=== PATIENT | female | born 1965 | race African-American/Black ===

== ENCOUNTER → 2016-06-27 | Outpatient (CLI) | payer BC ==
[2015-11-24 04:30] VITALS: BP 169/85
[~2016-06-27] MED LIST: LISI1TAB3 PO; LOSA1TAB16 PO
--- NOTE | 2016-06-27 16:20 | KCIC ---
Diagnostic digital mammograms left breast: Reason for examination: Asymmetry in the left breast. Followup exam. Comparison is made to previous study dated 12/19/2015. FINDINGS Breast density category C. The skin and nipple show no abnormalities. No abnormal lymph nodes are seen in the axilla. The breast parenchyma shows heterogeneous density. There continues to be some parenchymal asymmetry in the upper outer quadrant of the left breast which is unchanged. There continues to be a small circumscribed nodule at the 4 o'clock C position of the left breast consistent with an intramammary lymph node. There are no new dominant masses, suspicious calcifications or architectural distortions. IMPRESSION Continued presence of asymmetric parenchyma in the upper outer quadrant and a small nodule at the 4 o'clock C position. Ultrasound will follow. This study was interpreted with the benefit of Computerized Aided Detection (CAD). Mammography is not 100% sensitive in detecting breast cancer. Therefore, a self breast exam and a clinical breast exam are very important. A negative mammogram does not negate a clinically suspicious finding and should not result in a delay in biopsying a clinically suspicious abnormality. BI-RADS category 0: Incomplete. Ultrasound to follow. Left breast ultrasound: Comparison is made to previous studies dated 12/26/2015. Ultrasound examination was performed with attention to the lateral breast and axilla. In the 4 o'clock position 14 centimeters from the nipple, there continues to be a small nodule with a echogenic center consistent with an intramammary lymph node. In the 12 o'clock position 2.5 centimeters from the nipple, there is a hypoechoic nodule with some central echogenicity. This may represent some fibrocystic changes with post biopsy clip. There is some ductal ectasia in the retroareolar 2 o'clock position. No other focal suspicious lesions are seen. No abnormal lymph nodes are seen in the axilla. Impression: Continued presence of a small nodule consistent with an intramammary lymph node at the 4 o'clock C position of the left breast. Nodular asymmetry with some echogenicity centrally in the 12 o'clock position 2.5 centimeters from the nipple which may reflect previous biopsy site. Recommend 6 month followup ultrasound. BI-RADS category 3: Probably benign. This patient's information has been entered into a reminder system for the patient to be notified with the results of this examination and a target date for her next mammograms. Electronically signed by: Sena Osei MD (Jun 27, 2016 16:18:50)
== END | disposition home or self-care (01) ==
LOC: KCIC US 12:46
PROVIDERS: ATTEND Family Medicine
DX: R92.8 Other abnormal and inconclusive findings on diagnostic imaging of breast (principal)
CPT/HCPCS: 76641; G0206; 77065

== ENCOUNTER 2016-08-15 00:08 | Emergency (ER) | payer BC ==
[2016-08-15] MEDS ORDERED: PRED20TA PO (00:26)
[2016-08-15] MEDS ORDERED: FAMO-63 PO (00:26)
--- NOTE | 2016-08-15 00:26 | PHYS DOC ---
Past Medical History Past Medical History: Hypertension Past Surgical History: Hysterectomy Alcohol Use: None Drug Use: None Adult General Chief Complaint Chief Complaint: ITCHING HPI HPI Patient is a 50 year old female presents emergency department stating that she has been having irritation to the skin around the knees back arms hands. She states she has a rash. She denies any new soaps, detergents or foods. She denies any new clothing that's not been washed. Patient states she took a Benadryl around 4 PM this evening she states that that did not help much. Patient appears to have a hive on the back of her right shoulder. Patient does have redness on the shoulder knees hands. She denies any shortness of air difficulty breathing. Review of Systems Review of Systems Constitutional: Denies fever or chills [] Eyes: Denies change in visual acuity, redness, or eye pain [] HENT: Denies nasal congestion or sore throat [] Respiratory: Denies cough or shortness of breath [] Cardiovascular: No additional information not addressed in HPI [] GI: Denies abdominal pain, nausea, vomiting, bloody stools or diarrhea [] : Denies dysuria or hematuria [] Musculoskeletal: Denies back pain or joint pain [] Integument: rash denies skin lesions [] Neurologic: Denies headache, focal weakness or sensory changes [] Allergies Allergies Allergies Coded Allergies Type Severity Reaction Last Updated Verified No Known Drug Allergies 05/15/13 No Physical Exam Physical Exam Constitutional: Well developed, well nourished, no acute distress, non-toxic appearance. [] HENT: Normocephalic, atraumatic, bilateral external ears normal, oropharynx moist, no oral exudates, nose normal. [] Eyes: PERRLA, EOMI, conjunctiva normal, no discharge. [] Neck: Normal range of motion, no tenderness, supple, no stridor. [] Cardiovascular:Heart rate regular rhythm, no murmur [] Lungs & Thorax: Bilateral breath sounds clear to auscultation [] Skin: Warm, dry, no erythema, patient with a red raised rash noted on her back that appears to be hives. She also has red raised areas on her left knee bilateral palms appear to be very red. Back: No tenderness Extremities: No tenderness, no cyanosis, no clubbing, ROM intact, no edema. [] Neurologic: Alert and oriented X 3, normal motor function, normal sensory function, no focal deficits noted. [] Psychologic: Affect normal, judgement normal, mood normal. [] EKG EKG [] Radiology/Procedures Radiology/Procedures [] Course & Med Decision Making Course & Med Decision Making Pertinent Labs and Imaging studies reviewed. (See chart for details) Patient is unable to get Benadryl here in the emergency department as she has driven herself. She will be provided with prednisone and Pepcid. Patient was provided with discharge instructions to keep the areas clean dry and cool. She may use Aveeno baths to help soothe the skin. Also recommended Benadryl 25 mg every 4-6 hours. She was instructed this medication will cause drowsiness do not take any be alert and oriented. She'll be provided with a prescription for prednisone and Pepcid. Patient will be discharged home in stable condition. Signs symptoms to return back to emergency department been provided. [] Dragon Disclaimer Dragon Disclaimer This electronic medical record was generated, in whole or in part, using a voice recognition dictation system. Departure Departure Impression: Primary Impression: Allergic reaction Disposition: HOME, SELF-CARE Condition: STABLE Referrals: MARLENE SAUNDERS MD (PCP) Patient Instructions: Contact Dermatitis, [id number] Additional Instructions: Home to rest. Benadryl 25 mg every 4-6 hours. This medication will cause drowsiness do not take any be alert and oriented. Medication as prescribed. Aveeno baths may also help soothe the skin. Keep the areas clean dry and cool this will help prevent increase itching and irritation. Follow-up to primary care physician in the next 3-5 days. Return back to emergency prior signs symptoms of become worse. Scripts Famotidine (Pepcid)20 Mg [id number] Mg PO HS #10 TAB Prov:PEDRO KENYON STATOR WINDER 08/15/16 Prednisone 20 Mg [id number] Mg PO DAILY #14 TAB Prov:PEDRO KENYON STATOR WINDER 08/15/16 PEDRO KENYON STATOR WINDER Aug 15, 2016 00:26
[2016-08-15] MEDS ORDERED: FAMOTIDINE 20 MG TABLET. PO ONE (00:30)
[2016-08-15] MEDS ORDERED: PREDNISONE 20 MG TABLET PO ONE (00:30)
[2016-08-15 00:37] VITALS: BP 176/100
== END 2016-08-15 00:40 | disposition home or self-care (01) ==
LOC: ER 00:08
DX: T78.40XA Allergy, unspecified, initial encounter (principal); L50.9 Urticaria, unspecified; I10 Essential (primary) hypertension; X58.XXXA Exposure to other specified factors, initial encounter
CPT/HCPCS: 99283; J7512

== ENCOUNTER → 2017-02-04 | Outpatient (CLI) | payer BC ==
[~2017-02-04] MED LIST changes: +FAMO-63 PO; +PRED20TA PO
--- NOTE | 2017-02-05 12:51 | KCIC ---
DATE: 02/04/17 EXAM: Bilateral diagnostic 3-D mammogram and left breast ultrasound HISTORY: Follow-up abnormal asymmetric density in the left breast COMPARISON: Bilateral screening mammograms from 12/19/15 and 06/27/16 as well as left breast ultrasound from 12/26/15 and 06/27/16 This study was interpreted with the benefit of Computerized Aided Detection (CAD ). TECHNIQUE: Routine 2-D and 3-D screening mammograms of both breasts were obtained. FINDINGS: Bilateral mammogram: Breast Density: C Dense breast parenchyma is redemonstrated in the left upper outer breast which does not appear significantly changed. There is also a well-circumscribed nodule in the left outer breast. No suspicious clustered microcalcifications or architectural distortion is seen. The skin and nipples are intact. No definite mammographic abnormality seen in the left breast. Ultrasound of the left breast may be obtained to ensure interval stability. Left breast ultrasound discussion: There is a intramammary lymph node measuring 1.4 cm at 4:00 position, 14 cm from the nipple. Asymmetric density with fibrocystic changes at 12:00 position, 2.5 cm from the nipple remains unchanged. IMPRESSION: Asymmetric density and fibrocystic changes at 12:00 position, 2.5 cm from the nipple and a benign-appearing intramammary lymph node at 2:00 position remain stable. Patient may return for annual screening mammography in one year. BI-RADS CATEGORY: 2 BENIGN FINDING(S) RECOMMENDED FOLLOW-UP: One year bilateral mammograms PQRS compliance statement: Patient information was entered into a reminder system with a target due date for the next mammogram. Mammography is a sensitive method for finding small breast cancers, but it does not detect them all and is not a substitute for careful clinical examination. A negative mammogram does not negate a clinically suspicious finding and should not result in delay in biopsying a clinically suspicious abnormality. "Our facility is accredited by the [employer] Mammography Program." MTDD
== END | disposition home or self-care (01) ==
LOC: KCIC MAMMO 08:40
PROVIDERS: ATTEND Surgery
DX: R92.2 Inconclusive mammogram (principal)
CPT/HCPCS: 76641; G0204; G0279; 77062; 77066

== ENCOUNTER 2017-11-14 01:48 | Emergency (ER) | payer BC ==
[2017-11-14] MEDS: GABAPENTIN 300 MG CAPSULE. PO (02:24)
[2017-11-14 02:29] LABS: ADD MAN DIFF? NO
[2017-11-14 02:32] LABS: BASO % 1 % (0-3); EOS # 0.1 x10^3/uL (0.0-0.7); EOS % 1 % (0-3); HEMATOCRIT 37.6 % (36.0-47.0); HEMOGLOBIN 12.8 g/dL (12.0-15.5); LYMPH # 2.3 x10^3/uL (1.0-4.8); LYMPH % 34 % (24-48); MEAN CORPUSCULAR HEMOGLOBIN 29 pg (25-35); MEAN CORPUSCULAR HGB CONC 34 g/dL (31-37); MEAN CORPUSCULAR VOLUME 85 fL (79-100); MONO # 0.4 x10^3/uL (0.0-1.1); MONO % 5 % (0-9); NEUT % 59 % (31-73); PLATELET COUNT 212 x10^3/uL (140-400); RED BLOOD COUNT 4.45 x10^6/uL (3.50-5.40); RED CELL DISTRIBUTION WIDTH 14.7 % (11.5-14.5); WHITE BLOOD COUNT 6.7 x10^3/uL (4.0-11.0)
[2017-11-14 02:36] LABS: BILIRUBIN,URINE NEGATIVE (NEG); CLARITY,URINE CLEAR; COLOR,URINE YELLOW; GLUCOSE,URINE NEGATIVE (NEG); NITRITE,URINE NEGATIVE (NEG); PH,URINE 6.5; PROTEIN,URINE NEGATIVE (NEG-TRACE); UROBILINOGEN,URINE 0.2 mg/dL (0.2 mg/dL)
[2017-11-14 02:44] LABS: ANION GAP 11 (6-14); BLOOD UREA NITROGEN 12 mg/dL (7-20); CALCIUM 9.1 mg/dL (8.5-10.1); CARBON DIOXIDE 25 mmol/L (21-32); CHLORIDE 105 mmol/L (98-107); CREATININE 0.8 mg/dL (0.6-1.0); GFR 90.8; GLUCOSE 129 mg/dL (70-99); POTASSIUM 3.4 mmol/L (3.5-5.1); SODIUM 141 mmol/L (136-145)
[2017-11-14 02:46] LABS: BACTERIA,URINE MODERATE /HPF (0-FEW); RBC,URINE 0 /HPF (0-2)
[2017-11-14 02:47] LABS: SQUAMOUS EPITHELIAL CELL,UR MOD /LPF; TRICHOMONAS,URINE PRESENT; YEAST,URINE PRESENT /HPF
== END 2017-11-14 03:16 | disposition home or self-care (01) ==
LOC: ER 01:48
DX: E11.43 Type 2 diabetes mellitus with diabetic autonomic (poly)neuropathy (principal); I10 Essential (primary) hypertension; N39.0 Urinary tract infection, site not specified; Z91.14 Patient's other noncompliance with medication regimen; Z90.710 Acquired absence of both cervix and uterus
CPT/HCPCS: 36415; 80048; 81001; 85025; 87086; 99284

== ENCOUNTER → 2018-08-25 | Outpatient (CLI) | payer BC ==
[2017-11-14 03:00] VITALS: BP 174/86
[~2018-08-25] MED LIST changes: +CHLO25TA10 PO; +CIPR500T94 PO; +GABA300C18 PO; -LOSA1TAB16 PO; +LOSA1TAB19 PO; +METF500T16 PO
--- NOTE | 2018-08-25 16:34 | KCIC ---
Bilateral digital screening mammograms with 3-D tomosynthesis: Reason for examination: Routine screening. Comparison is made to previous studies dated 02/04/2017 and 12/19/2015. Bilateral mammograms in CC and oblique projections were obtained with 2-D imaging and 3-D tomosynthesis imaging on a Siemens Inspiration unit and reviewed on the workstation. Interpretation was made with the benefit of CAD. The skin and nipples show no abnormalities. No abnormal axillary lymph nodes are seen. The breast parenchyma is heterogeneously dense. (Breast density: Category C.) There are no continues to be a small nodule consistent with an intramammary lymph node at the 3:30 C position of the left breast which is stable. There are no new dominant masses, suspicious calcifications or architectural distortion. Impression: No evidence of malignancy. Recommend routine screening. Your patient's mammogram demonstrates that she has dense breast tissue (breast density category C or D), which could hide abnormalities, and if she has other risk factors for breast cancer that have been identified, she might benefit from supplemental screening tests that may be suggested by you as her ordering physician. Dense breast tissue, in and of itself, is a relatively common condition. Therefore, this information is not provided to cause undue concern, but rather to raise your awareness and to promote discussion with your patient regarding the presence of other risk factors, in addition to dense breast tissue. Your patient's mammography results will be sent to her. BI-RAD Category 2: Benign. "Our facility is accredited by the [employer] Mammography Program." This patient's information has been entered into a reminder system for the patient to be notified with the results of her examination and a target date for the next mammogram. Electronically signed by: Melodie Osei MD (08/25/2018 4:31 PM) [id number]
== END | disposition home or self-care (01) ==
LOC: KCIC MAMMO 10:52
PROVIDERS: ATTEND Family Medicine
DX: Z12.31 Encounter for screening mammogram for malignant neoplasm of breast (principal)
CPT/HCPCS: 77063; 77067

== ENCOUNTER → 2018-09-03 | Outpatient (CLI) | payer BC ==
[2017-11-14 03:00] VITALS: BP 174/86
--- NOTE | 2018-09-03 08:45 | KCIC ---
EXAM: Brain MRI without contrast. HISTORY: Memory loss. TECHNIQUE: Multiplanar, multisequence magnetic resonance imaging of the brain was performed without contrast. COMPARISON: Head CT dated 06/30/2014. FINDINGS: There is no restricted diffusion to suggest acute or subacute infarction. There is slight increased signal in the right aspect of the celina on diffusion-weighted images due to T2 shine through artifact. There is no mass effect or midline shift. There is no hydrocephalus. There are multiple scattered focal areas of T2/FLAIR hyperintensity within the cerebral white matter and celina. The orbits are unremarkable. There is minimal paranasal sinus mucosal thickening. There is an incidental left kasey bullosa. The mastoid air cells are unremarkable. There are normal flow voids within the cerebral vessels. No calvarial lesion is seen. IMPRESSION: 1. No acute intracranial finding. 2. Multiple scattered focal areas of signal change within the cerebral white matter and celina. This is most commonly due to chronic small vessel disease in patients of this age. The possibility of superimposed focal areas of chronic demyelination is not excluded given the lesion distribution and configuration. Electronically signed by: Petra Steele MD (09/03/2018 8:42 AM) [place] [id number]
== END | disposition home or self-care (01) ==
LOC: KCIC MRI 07:31
PROVIDERS: ATTEND Family Medicine
DX: R41.3 Other amnesia (principal); R90.82 White matter disease, unspecified
CPT/HCPCS: 70551

== ENCOUNTER → 2019-11-17 | Outpatient (CLI) | payer BC ==
[2017-11-14 03:00] VITALS: BP 174/86
[~2019-11-17] MED LIST changes: +LISI1TAB23 PO; -LISI1TAB3 PO
--- NOTE | 2019-11-17 10:16 | KCIC ---
Bilateral digital screening mammograms with 3-D tomosynthesis: Reason for examination: Routine screening. Comparison is made to previous studies dated 08/25/2018 and 02/04/2017. Bilateral mammograms in CC and oblique projections were obtained with 2-D imaging and 3-D tomosynthesis imaging on a Siemens Inspiration unit and reviewed on the workstation. Interpretation was made with the benefit of CAD. The skin and nipples show no abnormalities. No abnormal axillary lymph nodes are seen. The breast parenchyma is heterogeneously dense. (Breast density: Category C.) There continues to be a small circumscribed nodule posteriorly at the 4:00 C position of the left breast which is stable. There are no new dominant masses, suspicious calcifications or architectural distortion. Impression: No evidence of malignancy. Recommend routine screening. Your patient's mammogram demonstrates that she has dense breast tissue (breast density category C or D), which could hide abnormalities, and if she has other risk factors for breast cancer that have been identified, she might benefit from supplemental screening tests that may be suggested by you as her ordering physician. Dense breast tissue, in and of itself, is a relatively common condition. Therefore, this information is not provided to cause undue concern, but rather to raise your awareness and to promote discussion with your patient regarding the presence of other risk factors, in addition to dense breast tissue. Your patient's mammography results will be sent to her. BI-RAD Category 2: Benign. "Our facility is accredited by the [employer] Mammography Program." This patient's information has been entered into a reminder system for the patient to be notified with the results of her examination and a target date for the next mammogram. Electronically signed by: Melodie Osei MD (11/17/2019 10:13 AM) [facility]
== END ==
LOC: KCIC MAMMO 08:19
PROVIDERS: ATTEND Family Medicine
DX: Z12.31 Encounter for screening mammogram for malignant neoplasm of breast (principal)
CPT/HCPCS: 77063; 77067

== ENCOUNTER → 2019-12-22 | Outpatient (CLI) | payer BC ==
[2017-11-14 03:00] VITALS: BP 174/86
--- NOTE | 2019-12-22 13:20 | KCIC ---
STUDY: MRI of the left knee without contrast INDICATION: Left knee pain. COMPARISON: None. TECHNIQUE: Multiplanar MR imaging of the left knee performed without the use of intravenous or intra-articular contrast. FINDINGS: Menisci: The lateral meniscus is intact. Meniscal degeneration/degenerative tearing at the mid to posterior body segment, images 10 and 11 series 8. The root insertions are intact. Cruciate ligaments: Intact. Collateral ligaments: The lateral collateral ligamentous complex is intact. Reactive edema along the medial collateral ligament complex without a ligament tear. Tendons: Mild distal quadriceps tendinosis. Otherwise unremarkable tendons at the knee. Cartilage: Patellofemoral: No full-thickness chondral defect. There is likely some scattered superficial chondral fibrillation. Lateral compartment: Localized mostly partial-thickness chondrosis at the mid to posterior weightbearing lateral femoral condyle and lateral tibial plateau. Trace lateral femoral condyle subchondral cystic change, image 12 series 8. Medial compartment: Extensive high-grade and full-thickness mostly weightbearing chondrosis but with involvement of the proximal nonweightbearing aspect as well. Associated subchondral edema and cystic change involving the medial tibial plateau more so than the medial femoral condyle. Bones: Degenerative findings as above. No aggressive marrow signal abnormality. Scattered osteophyte formation the to include an osseous excrescence off the posteromedial aspect of the medial tibial plateau. Miscellaneous: Small amount of knee joint fluid. Heterogeneous T2 signal focus posterior to the popliteal vein, image 6 series 4, favored to represent a reactive lymph node. IMPRESSION: 1. Medial meniscal degeneration/degenerative tearing mainly at the mid to posterior body segment. Correspondingly there is severe weightbearing more so than proximal nonweightbearing medial compartment chondrosis with subchondral edema and cystic change. These findings involve the medial tibial plateau more so than the medial femoral condyle. 2. Intact cruciate and collateral ligaments. The lateral meniscus is intact. 3. Mild distal quadriceps tendinosis. 4. Localized partial thickness chondrosis at the posterior weightbearing lateral compartment. Electronically signed by: KEAGAN DOZIER MD (12/22/2019 1:17 PM) [id number]
== END | disposition home or self-care (01) ==
LOC: KCIC MRI 12:21
PROVIDERS: ATTEND Orthopaedic Surgery
DX: M25.762 Osteophyte, left knee (principal); M25.462 Effusion, left knee; M62.89 Other specified disorders of muscle; M77.8 Other enthesopathies, not elsewhere classified
CPT/HCPCS: 73721

== ENCOUNTER → 2020-02-10 | Outpatient (CLI) | payer BC ==
[2017-11-14 03:00] VITALS: BP 174/86
[~2020-02-10] MED LIST changes: +ATOR10TA60 PO; +BENA20TA4 PO; +CIDE300T PO; +ERGO500027 PO; +HYDR-3165 PO; +HYDR25TA10 PO; +MULT-496 PO
== END | disposition home or self-care (01) ==
LOC: LAB 13:54
PROVIDERS: ATTEND Orthopaedic Surgery
DX: Z20.828 Contact with and (suspected) exposure to other viral communicable diseases (principal)
CPT/HCPCS: U0003-CS

== ENCOUNTER → 2020-02-14 | Day surgery (SDC) | payer BC ==
[~2020-02-14] VITALS: Ht 157.5 cm; Wt 83.9 kg
[~2020-02-14] MED LIST changes: +BUPIVACAINE MPF 0.25% 30 ML VIAL. ONE; +HYDROcodone/APAP 7.5/325MG 1 TAB TABLET PO ONE; +HYDROmorphone 2 MG/ML VIAL IV PRN; +IV RINGERS,LACTATED 1000ML 1,000 ML IV SCH; +LIDOCAINE 1% Multi-Dose 20 ML VIAL. ONE; +LIDOCAINE 1% PF 2 ML VIAL. ID PRN; +MIDAZOLAM HCL/PF 2 MG/2 ML VIAL. ONE; +MORPHINE SULFATE 2 MG/ML VIAL. IV PRN; +ONDANSETRON PF 4 MG/2 ML VIAL. IV PRN; +PROCHLORPERAZINE 10 MG/2 ML VIAL. IV PRN; +PROPOFOL 10 MG/ML (20ML) VIAL. IV ONE; +fentaNYL PF VIAL 100 MCG/2 ML VIAL IV PRN; +fentaNYL PF VIAL 100 MCG/2 ML VIAL ONE; +hydrALAZINE 20 MG/ML VIAL. ONE
--- NOTE | 2020-02-14 08:18 | DISCH ---
DISCHARGE INSTRUCTIONS Condition on Discharge Condition on Discharge: Stable Activity After Discharge Activity Instructions for Disc: Other, see below (avoid hard grasp, fine motor use allowed like eating writing, typing etc) Lifting Instructions after Dis: No heavy lifting, Do not lift >10 pounds Weight Bearing Status after Di: As tolerated Diet after Discharge Diet after Discharge: Regular Wound Incision Care Wound/Incision Care: Ice to area for comfort, Do not change dressing Contacting the DRMarvin after DC Call your doctor for: Concerns you may have Follow-Up Follow up with: Dr. Petit 10 days CASIMIRO PETIT MD Feb 14, 2020 08:18
[2020-02-14 10:25] VITALS: BP 153/87
--- NOTE | 2020-02-14 15:47 | PDOC4 ---
Operative Note Operative Note Date of surgery: 02/14/2020 Preoperative diagnosis: Left carpal tunnel syndrome and trigger thumb Postoperative diagnosis: Same Operative procedure: Left carpal tunnel and trigger thumb releases Surgeon: Marisabel Instructor Physical Education: David Luis nurse practitioner Anesthesia: [place] I block Estimated blood loss: 2 cc Complications: None Operative indications:Sharon has had longstanding numbness in the median nerve distribution verified by EMG testing and unresponsive to nonoperative management. She says that she has been having recent significant pain and locking with flexion of her left thumb as well and we have reviewed risks benefits postoperative course of both the carpal tunnel release and trigger fin lisa release including the possibility of nerve or blood vessel damage infection continued pain medical or other anesthetic complications and the fact that her restrictions would really not change of avoiding hard grasping over the healing timeframe. All her questions were answered and she wishes to proceed with surgical evaluation and treatment Operative text: Patient was identified procedure verified patient placed in the supine position on the operating table. After adequate amounts of [place] I block anesthesia were administered the left upper extremity was prepped and draped in the standard sterile fashion. After timeout was performed patient procedure identified and verified her anesthesia was checked and supplemented with half percent plain Marcaine. A longitudinal incision was then made just distal to the distal palmar crease transverse carpal ligament was identified and divided under direct vision sharply both proximally and distally and verified to be released both visually and palpably. Median nerve was noted to have moderate compression. Attention was then turned to the left thumb where a transverse incision was made at the base of the thumb dissection carried out down to the flexor tendon sheath. Neurovascular bundles were isolated and protected and the A1 paz was divided completely allowing full range of motion and eliminating the triggering. Thorough irrigation carried out normal saline solution. Additional half percent plain Marcaine was injected in both incisions and closure accomplished with 3-0 nylon suture in a simple and vertical mattress fashion. Sterile soft dressings were placed fingers were noted to be warm pink following deflation of the tourniquet and patient was returned to recovery room in stable condition having tolerated procedure well. David Luis nurse practitioner was present for the procedure and assisted in the patient positioning prepping draping retraction closure and dressings CASIMIRO LEES MD Feb 14, 2020 15:47
== END | disposition home or self-care (01) ==
LOC: SURG 10:00
PROVIDERS: ATTEND Orthopaedic Surgery
DX: G56.02 Carpal tunnel syndrome, left upper limb (principal); M65.312 Trigger thumb, left thumb; I10 Essential (primary) hypertension; E11.9 Type 2 diabetes mellitus without complications; Z79.899 Other long term (current) drug therapy
CPT/HCPCS: 26055; 64721; J0360; J0690; J2250; J2405; J2704; J3010; J3490

== ENCOUNTER 2020-05-10 18:20 | Emergency (ER) | payer BC ==
[~2020-05-10] VITALS: Ht 160 cm; Wt 81.0 kg
[~2020-05-10 18:20] MED LIST changes: -BUPIVACAINE MPF 0.25% 30 ML VIAL. ONE; -HYDROcodone/APAP 7.5/325MG 1 TAB TABLET PO ONE; -HYDROmorphone 2 MG/ML VIAL IV PRN; -IV RINGERS,LACTATED 1000ML 1,000 ML IV SCH; -LIDOCAINE 1% Multi-Dose 20 ML VIAL. ONE; -LIDOCAINE 1% PF 2 ML VIAL. ID PRN; -MIDAZOLAM HCL/PF 2 MG/2 ML VIAL. ONE; -MORPHINE SULFATE 2 MG/ML VIAL. IV PRN; -ONDANSETRON PF 4 MG/2 ML VIAL. IV PRN; -PROCHLORPERAZINE 10 MG/2 ML VIAL. IV PRN; -PROPOFOL 10 MG/ML (20ML) VIAL. IV ONE; -fentaNYL PF VIAL 100 MCG/2 ML VIAL IV PRN; -fentaNYL PF VIAL 100 MCG/2 ML VIAL ONE; -hydrALAZINE 20 MG/ML VIAL. ONE
[2020-05-10 19:05] VITALS: BP_SYST 185
--- NOTE | 2020-05-10 19:33 | RAD ---
EXAM: Left knee, 3 views. HISTORY: Pain. COMPARISON: 11/14/2019 FINDINGS: 3 views of the left knee are obtained. There is medial compartment joint space narrowing with subchondral sclerosis and marginal spurring. There is a small joint effusion. There is no acute fracture, dislocation or subluxation. IMPRESSION: 1. Small left knee effusion. 2. Mild medial compartment osteoarthritis of the left knee. Electronically signed by: Petra Steele MD (05/10/2020 7:30 PM) [facility]
[2020-05-10] MEDS ORDERED: MELO15TA23 PO (19:48)
--- NOTE | 2020-05-10 19:48 | ED.ADGEN ---
Past Medical History Past Medical History: Arthritis, Diabetes-Type II, Hypertension Additional Past Medical Histor: carpal tunnel Past Surgical History: , Hysterectomy Additional Past Surgical Histo: carpal tunnel surgery February 2020 Smoking Status: Never Smoker Alcohol Use: None Drug Use: None General Adult EDM: Chief Complaint: KNEE INJURY HPI: HPI: Patient is a 54 year old AA female who presents emergency department with complaints of left knee pain for the last 2 to 3 months. She denies any injury or trauma. States that the pain has significantly increased over the last week. She has tried wearing a elastic knee support and has tried taking naproxen that was previously prescribed by her orthopedic doctor without any benefit. Patient states she has seen Dr. Petit for previous orthopedic services. She denies any fever, swelling, redness, or warmth of the affected joint. She currently rates pain 10 out of 10 on the pain scale, she denies any alleviating factors, pain is worse with ambulation and movement. Review of Systems: Review of Systems: Complete ROS is negative unless otherwise noted in HPI. Allergies: Allergies: Allergies Coded Allergies Type Severity Reaction Last Updated Verified No Known Drug Allergies 02/14/20 No Physical Exam: PE: See Above Constitutional: Well developed, well nourished, no acute distress, non-toxic appearance. [] HENT: Normocephalic, atraumatic, bilateral external ears normal, nose normal. [] Eyes: PERRLA, EOMI, conjunctiva normal, no discharge. [] Neck: Normal range of motion, no stridor. [] Cardiovascular:Heart rate regular rhythm Lungs & Thorax: Respirations even and unlabored, no retractions, no respiratory distress Skin: Warm, dry, no erythema, no rash. [] Extremities: Left knee: diffuse tenderness to palpation, negative anterior and posterior drawer testing, no crepitus, 2+ posterior tibial pulse, no cyanosis, ROM intact, 1+ edema without erythema or warmth. Neurologic: Alert and oriented X 3, no focal deficits noted. [] Psychologic: Affect normal, judgement normal, mood normal. [] Current Patient Data: Vital Signs: Vital Signs Date Time Temp Pulse Resp B/P (MAP) Pulse Ox O2 Delivery O2 Flow Rate FiO2 05/10/20 19:05 97.6 83 185/96 (125) 99 Room Air 97.6 EKG: EKG: [] Heart Score: Risk Factors: Risk Factors: DM, Current or recent (<one month) smoker, HTN, HLP, family history of CAD, obesity. Risk Scores: Score 0 - 3: 2.5% MACE over next 6 weeks - Discharge Home Score 4 - 6: 20.3% MACE over next 6 weeks - Admit for Clinical Observation Score 7 - 10: 72.7% MACE over next 6 weeks - Early Invasive Strategies Radiology/Procedures: Radiology/Procedures: PROCEDURE: KNEE LEFT 3V EXAM: Left knee, 3 views. HISTORY: Pain. COMPARISON: 11/14/2019 FINDINGS: 3 views of the left knee are obtained. There is medial compartment joint space narrowing with subchondral sclerosis and marginal spurring. There is a small joint effusion. There is no acute fracture, dislocation or subluxation. IMPRESSION: 1. Small left knee effusion. 2. Mild medial compartment osteoarthritis of the left knee. [] Course & Med Decision Making: Course & Med Decision Making Pertinent Labs and Imaging studies reviewed. (See chart for details) []I have reviewed the PA/BOTTOM SCRUBBER's note and Plan of Care. I was available for consultation as needed during the patient's visit in the emergency department. I agree with the clinical impression, plans and disposition. Kika Disclaimer: Kika Disclaimer: This electronic medical record was generated, in whole or in part, using a voice recognition dictation system. Departure Departure Impression: Primary Impression: Effusion of left knee joint Additional Impression: Left anterior knee pain Disposition: 01 DC HOME SELF CARE/HOMELESS Condition: STABLE Referrals: CASIMIRO PETIT MD Patient Instructions: Knee Effusion, Nrre-[id number], Knee Pain, [id number]-[id number] Additional Instructions: Fill prescription(s) and use as directed. Recommend application of ice, elevation, and rest of affected extremity. Wear your knee sleeve as needed for comfort. Do not take ibuprofen or naproxen while taking the medication that was prescribed. Call Dr. Petit's office in the morning to schedule follow-up appointment. Return to the ER if your symptoms worsen. Scripts Meloxicam (MELOXICAM) 15 Mg Tablet 1 TAB PO DAILY for 30 Days, #30 TAB 0 Refills Prov: ELIF STORM APRN 05/10/20 Problem Qualifiers ELIF STORM APRN May 10, 2020 19:48 PHIL ACOSTA MD May 10, 2020 20:02
[2020-05-10 19:55] VITALS: BP_DIAS 83
== END 2020-05-10 20:00 | disposition home or self-care (01) ==
LOC: ER 18:20
DX: M25.462 Effusion, left knee (principal); M17.12 Unilateral primary osteoarthritis, left knee; E11.9 Type 2 diabetes mellitus without complications; I10 Essential (primary) hypertension; Z90.710 Acquired absence of both cervix and uterus
CPT/HCPCS: 73562; 99283

== ENCOUNTER 2020-09-22 16:42 | Emergency (ER) | payer BC ==
[~2020-09-22] VITALS: Ht 160 cm; Wt 82.0 kg
[~2020-09-22 16:42] MED LIST changes: +MELO15TA23 PO
[2020-09-22 19:30] VITALS: BP 172/90
[2020-09-22] MEDS ORDERED: IV NORMAL SALINE 1000ML BAG 1,000 ML IV ONE (20:45)
[2020-09-22] MEDS ORDERED: diphenhydrAMINE 50 MG/ML VIAL IVP ONE (20:45)
[2020-09-22] MEDS ORDERED: PROCHLORPERAZINE 10 MG/2 ML VIAL. IV ONE (20:45)
[2020-09-22] MEDS ORDERED: DEXAMETHASONE SOD PHOS 20 MG/5 ML VIAL. IV ONE (20:45)
--- NOTE | 2020-09-22 21:16 | RAD ---
CT HEAD/BRAIN WO History: Reason: headache behind L eye x1 week, HTn / Spl. Instructions: / History: Comparison: None. Technique: Noncontrast CT imaging was performed of the head. Exposure: One or more of the following individualized dose reduction techniques were utilized for thi s examination: 1. Automated exposure control 2. Adjustment of the mA and/or kV according to patient size 3. Use of iterative reconstruction technique. Findings: No intracranial hemorrhage. No mass effect. No hydrocephalus. Extra-axial spaces are unremarkable. Imaged orbits are unremarkable. Imaged paranasal sinuses and mastoid air cells are clear. No acute ca lvarial fracture. Impression: 1. No acute intracranial abnormality. Electronically signed by: Darci Hawkins DO (09/22/2020 9:13 PM) [facility]
--- NOTE | 2020-09-22 21:21 | ED.ADGEN ---
Past Medical History Past Medical History: Arthritis, Diabetes-Type II, Hypertension Additional Past Medical Histor: carpal tunnel Past Surgical History: , Hysterectomy Additional Past Surgical Histo: carpal tunnel surgery February 2020 Smoking Status: Never Smoker Alcohol Use: None Drug Use: None General Adult EDM: Chief Complaint: HYPERTENSION HPI: HPI: Patient is a 54 year old AA female who presents emergency department with complaints of a headache behind her left eye for the last week. She denies any decreased vision, or floaters. Patient reports photosensitivity and nausea but denies any vomiting. She denies any fever, cough, shortness of breath, chest pain, palpitations, abdominal pain, vomiting, diarrhea, ear pain, nasal congestion, or sinus pressure. Patient states this is similar to her previous headaches. She also complains of having elevated high blood pressure this week. She was seen by her primary care doctor yesterday who increased her lisinopril dose from 20 mg daily to 40. Patient states she took the new dose today. She denies any aphasia, incoordination, dizziness, or difficulty walking. Patient currently rates her headache a 10 out of 10 on the pain scale, she denies any alleviating factors, the pain is worse with exposure to light and movement. Review of Systems: Review of Systems: Complete ROS is negative unless otherwise noted in HPI. Current Medications: Current Medications Medications (Trade) Dose Ordered Sig/Robby Start Time Stop Time Status Last Admin Dose Admin Dexamethasone Sodium Phosphate (Decadron) 10 mg 1X ONCE 09/22/20 20:45 09/22/20 20:46 DC 09/22/20 21:23 10 MG Diphenhydramine HCl (Benadryl) 25 mg 1X ONCE 09/22/20 20:45 09/22/20 20:46 DC 09/22/20 21:23 25 MG Prochlorperazine Edisylate (Compazine) 10 mg 1X ONCE 09/22/20 20:45 09/22/20 20:46 DC 09/22/20 21:24 10 MG Sodium Chloride 1,000 ml @ 1,000 mls/hr 1X ONCE 09/22/20 20:45 09/22/20 21:44 DC 09/22/20 21:23 1,000 MLS/HR Allergies: Allergies: Allergies Coded Allergies Type Severity Reaction Last Updated Verified No Known Drug Allergies 02/14/20 No Physical Exam: PE: See Above Constitutional: Well developed, well nourished, no acute distress, non-toxic appearance. [] HENT: Normocephalic, atraumatic, bilateral external ears normal, nose normal. [] Eyes: PERRLA, EOMI, conjunctiva normal, no discharge. [] Neck: Normal range of motion, no stridor. [] Cardiovascular:Heart rate regular rhythm Lungs & Thorax: Respirations even and unlabored, no retractions, no respiratory distress Skin: Warm, dry, no erythema, no rash. [] Extremities: No cyanosis, ROM intact, no edema. [] Neurologic: Alert and oriented X 3, normal motor, normal sensory, speech clear, no focal deficits noted. [] Psychologic: Affect normal, judgement normal, mood normal. [] Current Patient Data: Vital Signs: Vital Signs Date Time Temp Pulse Resp B/P (MAP) Pulse Ox O2 Delivery O2 Flow Rate FiO2 09/22/20 19:30 98.8 103 16 172/90 (117) 95 Room Air 98.8 EKG: EKG: [] Heart Score: C/O Chest Pain: No Risk Scores: Score 0 - 3: 2.5% MACE over next 6 weeks - Discharge Home Score 4 - 6: 20.3% MACE over next 6 weeks - Admit for Clinical Observation Score 7 - 10: 72.7% MACE over next 6 weeks - Early Invasive Strategies Radiology/Procedures: Radiology/Procedures: PROCEDURE: CT HEAD WO CONTRAST CT HEAD/BRAIN WO History: Reason: headache behind L eye x1 week, HTn / Spl. Instructions: / History: Comparison: None. Technique: Noncontrast CT imaging was performed of the head. Exposure: One or more of the following individualized dose reduction techniques were utilized for this examination: 1. Automated exposure control 2. Adjustment of the mA and/or kV according to patient size 3. Use of iterative reconstruction technique. Findings: No intracranial hemorrhage. No mass effect. No hydrocephalus. Extra-axial spaces are unremarkable. Imaged orbits are unremarkable. Imaged paranasal sinuses and mastoid air cells are clear. No acute calvarial fracture. Impression: 1. No acute intracranial abnormality. [] Course & Med Decision Making: Course & Med Decision Making Pertinent Labs and Imaging studies reviewed. (See chart for details) 54-year-old female presents emergency department with complaints of a headache under her left eye for the last week and high blood pressure. CT the patient's head was negative for any acute findings. Patient was given a liter normal saline, 25 mg of Benadryl, 10 mg Compazine, and 10 mg Decadron in the emergency department. Her blood pressure decreased to 169/87 at the time of my evaluation. Patient reported feeling better and stated that she was at home. I encouraged patient to rest in a cool dark room and remain screen exposure. Prescription written for Fioricet to take as needed may take up to 6 tablets in 24 hours. I encouraged her to start with 1 tablet as it may make her feel lightheaded or dizzy. Patient and her verbalized an understanding of home care, medications, follow-up, and return to ED instructions and were in agreement with the plan of care. [] Dragon Disclaimer: Dragon Disclaimer: This electronic medical record was generated, in whole or in part, using a voice recognition dictation system. Departure Departure Impression: Primary Impression: Migraine headache Additional Impression: Hypertension Disposition: 01 HOME / SELF CARE / HOMELESS Condition: STABLE Referrals: ARISTIDES NINO MD (PCP) Patient Instructions: Hypertension, [id number], Migraine Headache, Yrag-im-Nrmy Additional Instructions: Continue taking your blood pressure medication as prescribed by your primary care doctor. Home to rest in a cool dark room. Limit exposure to screens. Fill the prescription and take it as needed for severe headache. Follow-up with your primary care doctor in the next 1 to 2 days, return to the ER if symptoms worsen or fever develops. Scripts Butalb/Acetaminophen/Caffeine ([id number] 50-325-40) 1 Each Tablet 1-2 EACH PO Q4HRS PRN for PAIN MDD 6 tabs for 3 Days, #18 TAB 0 Refills Prov: JOYCEELIF [employer]O REPAIR TEACHER 09/22/20 Attending Signature Attending Signature I have participated in the care of this patient and I have reviewed and agree with all pertinent clinical information above including history, exam, and recommendations. Problem Qualifiers Primary Impression: Migraine headache Migraine type: unspecified Status migrainosus presence: without status migrainosus Intractability: not intractable Qualified Codes: G43.909 - Migraine, unspecified, not intractable, without status migrainosus Additional Impression: Hypertension Hypertension type: unspecified Qualified Codes: I10 - Essential (primary) hypertension ELIF STORM APRN Sep 22, 2020 21:21 JOSELO MONTERROSO MD Sep 23, 2020 18:17
[2020-09-22] MEDS ORDERED: BUTA1TAB23 PO (22:02)
== END 2020-09-22 22:20 | disposition home or self-care (01) ==
LOC: ER 16:42
DX: G43.909 Migraine, unspecified, not intractable, without status migrainosus (principal); I10 Essential (primary) hypertension; R42 Dizziness and giddiness; M19.90 Unspecified osteoarthritis, unspecified site; E11.9 Type 2 diabetes mellitus without complications; Z90.710 Acquired absence of both cervix and uterus; Z98.890 Other specified postprocedural states
CPT/HCPCS: 70450; 96361; 96374; 96375; 99284; J0780; J1100; J1200; J7030

== ENCOUNTER → 2020-10-23 | Outpatient (CLI) | payer BC ==
[~2020-10-23] MED LIST changes: +BENA40TA3 PO; +BUTA1TAB23 PO
--- NOTE | 2020-10-23 10:54 | EKG ---
[facility] [address] [place] [address] Test Date: 2020-10-23 Test Time: 10:47:23 Pat Name: KENDRICK QUIROS Department: Room: Gender: F Naprapath: ALVIN : 1965 Requested By: CASIMIRO LEES Order Number: [id number] Reading MD: Janes Bell MD Measurements Intervals [place] Rate: 77 P: 43 TX: 130 QRS: -3 QRSD: 86 T: 21 QT: 382 QTc: 434 Interpretive Statements SINUS RHYTHM Electronically Signed On 10-25-2020 11:13:42 CDT by Janes Bell MD
[2020-10-23 11:23] LABS: BASO % 1 % (0-3); EOS # 0.1 x10^3/uL (0.0-0.7); EOS % 1 % (0-3); HEMATOCRIT 39.4 % (36.0-47.0); HEMOGLOBIN 13.3 g/dL (12.0-15.5); LYMPH # 1.9 x10^3/uL (1.0-4.8); LYMPH % 29 % (24-48); MEAN CORPUSCULAR HEMOGLOBIN 28 pg (25-35); MEAN CORPUSCULAR HGB CONC 34 g/dL (31-37); MEAN CORPUSCULAR VOLUME 84 fL (79-100); MONO # 0.3 x10^3/uL (0.0-1.1); MONO % 5 % (0-9); NEUT # 4.2 x10^3/uL (1.8-7.7); NEUT % 64 % (31-73); PLATELET COUNT 237 x10^3/uL (140-400); RED BLOOD COUNT 4.69 x10^6/uL (3.50-5.40); RED CELL DISTRIBUTION WIDTH 15.7 % (11.5-14.5); WHITE BLOOD COUNT 6.6 x10^3/uL (4.0-11.0)
[2020-10-23 11:30] LABS: PROTHROMBIN TIME PATIENT 12.9 SEC (11.7-14.0)
--- NOTE | 2020-10-23 11:43 | RAD ---
EXAM: Chest, 2 views. HISTORY: Preoperative evaluation. COMPARISON: None. FINDINGS: 2 views of the chest are obtained. There is no infiltrate, pleural effusion or pneumothorax . The heart is normal in size. IMPRESSION: No acute pulmonary finding. Electronically signed by: Petra Steele MD (10/23/2020 11:41 AM) [id number]
[2020-10-23 11:52] LABS: ALBUMIN 4.1 g/dL (3.4-5.0); CREATININE 0.8 mg/dL (0.6-1.0); GFR 90.1; POTASSIUM 3.8 mmol/L (3.5-5.1)
[2020-10-24 00:16] LABS: HEMOGLOBIN A1C 6.1 % (4.8-5.6)
== END ==
LOC: SURGPAT 10:01
PROVIDERS: ATTEND Orthopaedic Surgery
DX: Z01.818 Encounter for other preprocedural examination (principal); M17.12 Unilateral primary osteoarthritis, left knee; R94.31 Abnormal electrocardiogram [ECG] [EKG]; Z96.652 Presence of left artificial knee joint
CPT/HCPCS: 36415; 71046; 80048; 82040; 82306; 83036; 85025; 85610; 85651; 85730; 87641; 93005

== ENCOUNTER → 2020-11-02 | Outpatient (CLI) | payer BC ==
[~2020-11-02] MED LIST changes: +OXYC5CAP PO; +WARF-31 PO
== END ==
LOC: LAB 10:20
PROVIDERS: ATTEND Orthopaedic Surgery
DX: Z01.812 Encounter for preprocedural laboratory examination (principal); M17.12 Unilateral primary osteoarthritis, left knee; Z20.822 Contact with and (suspected) exposure to COVID-19
CPT/HCPCS: U0003; U0005

== ENCOUNTER 2020-11-06 06:08 | Observation (INO) | payer BC ==
[2020-10-23 10:53] VITALS: BP 169/97
[~2020-11-06] VITALS: Ht 160 cm; Wt 84.0 kg
[2020-11-06] VITALS (9 sets, daily range): BP systolic 119–156; BP diastolic 71–89
[~2020-11-06 06:08] MED LIST changes: +ACETAMINOPHEN 500 MG TABLET PO PRN; +DEXAMETHASONE SOD PHOS 4 MG/ML VIAL ONE; -ERGO500027 PO; +ERGO500089 PO; +GABAPENTIN 300 MG CAPSULE. PO PRN; +HYDROmorphone 2 MG/ML VIAL IVP PRN; +IV RINGERS,LACTATED 1000ML 1,000 ML IV SCH; +LIDOCAINE 2% PF 5 ML VIAL. ONE; +MELOXICAM 7.5 MG TABLET PO PRN; +MORPHINE SULFATE 2 MG/ML VIAL. IVP PRN; +ONDANSETRON PF 4 MG/2 ML VIAL. ONE; -OXYC5CAP PO; +PROCHLORPERAZINE 10 MG/2 ML VIAL. IVP PRN; +PROPOFOL 10 MG/ML (20ML) VIAL. IV ONE; +TRANEXAMIC ACID 1,000 MG in IV NS 50ML -- 1ST BAG INJ ONE; +TV=100ml MORPHINE 5 MG, KETOROLAC 30 MG, ROPIVacaine 0.5% PF 60 ML, EPINEPH... INT ART ONE; -WARF-31 PO; +fentaNYL PF VIAL 100 MCG/2 ML VIAL IVP PRN
[2020-11-06] MEDS ORDERED: ROCURONIUM 50 MG/5 ML VIAL. ONE (06:09)
[2020-11-06 07:14] LABS: PROTHROMBIN TIME PATIENT 12.7 SEC (11.7-14.0)
[2020-11-06] MEDS ORDERED: TRANEXAMIC ACID in NS IVPB 100 ML ONE (07:17)
[2020-11-06] MEDS ORDERED: VANCOMYCIN 1 GM VIAL. ONE (07:17)
[2020-11-06] MEDS ORDERED: fentaNYL PF VIAL 250 MCG/5 ML VIAL ONE (07:22)
[2020-11-06] MEDS ORDERED: CALCIUM CARBONATE 500 MG TAB.CHEW PO PRN (07:45)
[2020-11-06] MEDS ORDERED: METOCLOPRAMIDE HCL 10 MG/2 ML VIAL. IVP PRN (07:45)
[2020-11-06] MEDS ORDERED: diphenhydrAMINE 50 MG/ML VIAL IVP PRN (07:45)
[2020-11-06] MEDS ORDERED: 0.9 % SODIUM CHLORIDE 10 ML DISP.SYRIN. IV PRN (07:45)
[2020-11-06] MEDS ORDERED: DEXTROSE 50% 25 GM / 50ML DISP.SYRIN. IV PRN (07:45)
[2020-11-06] MEDS ORDERED: fentaNYL PF VIAL 100 MCG/2 ML VIAL IVP PRN (07:45)
[2020-11-06] MEDS ORDERED: ZOLPIDEM 5 MG TABLET. PO PRN (07:45)
[2020-11-06] MEDS ORDERED: MORPHINE SULFATE 2 MG/ML VIAL. IVP PRN (07:45)
--- NOTE | 2020-11-06 07:55 | PREOP HP ---
DATE OF SERVICE: 11/06/2020 PREOPERATIVE HISTORY AND PHYSICAL CHIEF COMPLAINT: Left knee pain and degenerative disease. 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 PAST MEDICAL HISTORY: Significant for hypertension, arthritis, well controlled type 2 diabetes mellitus. PAST SURGICAL HISTORY: C-sections, partial followed by a total hysterectomy, left carpal tunnel release, left trigger thumb release. FAMILY HISTORY: Mother with dementia and is . Father is , cervical cancer in a grandmother, breast cancer in an aunt and healthy son and daughter and healthy siblings. SOCIAL HISTORY: Denies smoking, alcohol or drug use. She is . MEDICATIONS: Medication list is reviewed. ALLERGIES: She has no known drug allergies. REVIEW OF SYSTEMS: Denies any chest pain, shortness of breath, fever, chills, focal weakness, numbness, tingling, recent febrile illness or other constitutional symptoms. PHYSICAL EXAMINATION: VITAL SIGNS: Blood pressure 156/79, pulse 84, respirations 18, 98% saturation on room air, temperature 97.3. HEENT: Atraumatic, normocephalic. HEART: Regular rate and rhythm. LUNGS: Clear to auscultation bilaterally. ABDOMEN: Benign. MUSCULOSKELETAL: On examination of the left knee, she has medial much more so than lateral joint line tenderness. Ligaments are stable, aside from slight medial collateral ligament pseudolaxity. She has no joint effusion. Slight patellofemoral crepitus bilaterally. Normal examination of the right knee, bilateral hips and ankles. X-rays show medial joint line narrowing, degenerative spurring with some lateral compartment involvement. IMPRESSION: Primary osteoarthritis, left knee, well controlled type 2 diabetes mellitus as well as BMI in the 33 range. TREATMENT PLAN: I had previously gone over her risks, benefits, postoperative course of total knee arthroplasty including the possibility of infection, nerve or blood vessel damage, premature wear, loosening, medical or other anesthetic complications, continued pain among others. All her questions were answered and she wants to proceed with total knee arthroplasty and informed consent was obtained today. She will undergo joint center observation to follow. HERMINIA DR: Yue TID: [id number]
[2020-11-06] MEDS: INSULIN LISPRO 300 UNITS/3 ML VIAL. SQ SCH ×3 (08:00→17:00)
[2020-11-06] MEDS ORDERED: TRANEXAMIC ACID 1,000 MG in IV NS 50ML -- 2ND BAG INJ ONE (08:00)
[2020-11-06] MEDS: MULTIVITAMIN with MINERAL TABLET. PO SCH (09:00)
--- NOTE | 2020-11-06 09:18 | PDOC4 ---
Operative Note Operative Note Date of surgery: 11/06/2020 Preoperative diagnosis: Degenerative left knee Postoperative diagnosis: Same Operative procedure: Left total knee arthroplasty Surgeon: Marisabel Assist: Elvis earl Anesthesia: General Estimated blood loss: 25 cc Complications: None Specimens: Cartilage surfaces to pathology Operative indications: Please see my dictated preoperative history and physical for detailed operative indications and note that we had reviewed preoperatively risks benefits postoperative course of the surgery including the possibility of infection continued pain nerve or blood vessel damage premature wear or loosening instability medical or other anesthetic complications among others and she agrees to proceed with surgical evaluation and treatment having given informed consent Operative text: Patient was identified procedure verified patient placed in the supine position on the operating table. After adequate amounts of general anesthesia were administered the left lower extremity was prepped and draped in standard sterile fashion with a thigh tourniquet and after timeout was performed patient procedure identified and verified the left lower extremity was exsanguinated by Esmarch bandage tourniquet inflated to 300 mmHg and a midline incision was made followed by a medial parapatellar approach fat pad was excised and patella everted and the distal femur drilled to accommodate the intramedullary cutting guide which was set at 5 degrees with a standard distal cut. Menisci and cruciate ligaments were excised and a tibial cut was made using the extra medullary cutting guide aligned with the second toe and alignment verified with a spacer and drop kelly. Tibia was prepared with a size D persona trial component. Femur was sized at a size 7 and AP lateral chamfer cuts were made and ligament balancing carried out. A medial release was carried out and I did achieve excellent stability with a 16 mm trial medial congruent articular surface spacer. Femoral lug holes were drilled and osteophytes removed from the patella and the remaining patellar cartilage was adequate and I elected not to perform any further resurfacing. She had excellent tracking. Trial components were removed thorough irrigation carried out with normal saline solution and the following persona components were cemented in place with polymethylmethacrylate cement: A size D persona natural tibial component and size 7 standard right persona cruciate retaining femur. Excess cement was removed with a curette and a vitamin E medial congruent 16 mm height articular spacer was locked into place and the knee held into extension until cement was dry. Irrigation again carried out with dilute Betadine lavage and normal saline solution and 1 g vancomycin was placed in the knee joint. Retinaculum closed with #1 PDS suture in a running fashion subcutaneous closure with buried Vicryl sutures subcuticular closure with three oh strata fix Monocryl. A santos dressing was placed. Toes were noted to be warm pink following deflation of the tourniquet patient was returned to recovery room in stable condition having to lerated procedure well. Elvis earl was present for the procedure and assisted in patient positioning prepping draping retraction closure dressings CASIMIRO LEES MD Nov 06, 2020 09:18
--- NOTE | 2020-11-06 09:59 | RAD ---
Two-view left knee dated 11/06/2020. No comparison available. Clinical data indication: Postop knee replacement. FINDINGS: 2 views left knee show interval total knee arthroplasty. Femoral and tibial components are intact. No periprosthetic fracture or malalignment. There is diffuse soft tissue swelling and soft tissue gas. IMPRESSION: Status post left knee arthroplasty. Electronically signed by: Nazario Moe MD (11/06/2020 9:57 AM) JODY
[2020-11-06] MEDS: LISINOPRIL 20 MG TABLET PO SCH (10:00)
[2020-11-06] MEDS: hydroCHLOROthiazide 25 MG TABLET PO SCH (10:00)
[2020-11-06] MEDS ORDERED: fentaNYL PF VIAL 100 MCG/2 ML VIAL ONE (10:08)
[2020-11-06] MEDS: fentaNYL PF VIAL 100 MCG/2 ML VIAL IVP PRN ×2 (10:11→10:20)
[2020-11-06] MEDS ORDERED: PROCHLORPERAZINE 10 MG/2 ML VIAL. ONE (10:13)
[2020-11-06] MEDS: ONDANSETRON PF 4 MG/2 ML VIAL. IVP SCH ×3 (11:50→23:53)
[2020-11-06] MEDS: IV NORMAL SALINE 1000ML BAG 1,000 ML IV SCH (11:51)
[2020-11-06] MEDS: ONDANSETRON ODT 4 MG TAB.RAPDIS. PO SCH ×3 (11:57→23:53)
[2020-11-06] MEDS ORDERED: SEVOFLURANE > 120 MINUTES. IH ONE (13:07)
[2020-11-06] MEDS ORDERED: WARFARIN 7.5 MG TABLET. PO ONE (16:00)
[2020-11-06] MEDS: FERROUS SULFATE 325 MG TABLET. PO SCH (17:22)
[2020-11-06] MEDS: SENNOSIDES/DOCUSATE 8.6/50MG TABLET. PO SCH (17:22)
[2020-11-06] MEDS: oxyCODONE IR 5 MG TABLET PO PRN ×2 (17:22→22:33)
[2020-11-06] MEDS: ATORVASTATIN CALCIUM 10 MG TABLET. PO SCH (20:55)
[2020-11-07 02:24] VITALS: BP 118/70
[2020-11-07] MEDS: GABAPENTIN 100 MG CAPSULE. PO SCH ×3 (05:07→21:32)
[2020-11-07] MEDS: traMADol 50 MG TABLET PO SCH ×4 (05:08→23:54)
[2020-11-07 05:35] LABS: PROTHROMBIN TIME PATIENT 12.9 SEC (11.7-14.0)
[2020-11-07] MEDS: ONDANSETRON PF 4 MG/2 ML VIAL. IVP SCH (06:00)
[2020-11-07] MEDS ORDERED: MAGNESIUM HYDROXIDE 2,400 MG/30 ML ORAL.SUSP. PO PRN (06:00)
[2020-11-07] MEDS: ONDANSETRON ODT 4 MG TAB.RAPDIS. PO SCH (06:00)
[2020-11-07 06:15] VITALS: BP 129/80
[2020-11-07] MEDS: IV NORMAL SALINE 1000ML BAG 1,000 ML IV SCH (06:15)
[2020-11-07] MEDS: oxyCODONE IR 5 MG TABLET PO PRN ×4 (06:15→21:32)
[2020-11-07] MEDS: FERROUS SULFATE 325 MG TABLET. PO SCH ×2 (07:57→17:13)
[2020-11-07] MEDS: ACETAMINOPHEN 500 MG TABLET PO SCH ×3 (07:57→21:32)
[2020-11-07] MEDS: MULTIVITAMIN with MINERAL TABLET. PO SCH (07:58)
[2020-11-07] MEDS: MELOXICAM 7.5 MG TABLET PO SCH (07:58)
[2020-11-07] MEDS: SENNOSIDES/DOCUSATE 8.6/50MG TABLET. PO SCH (07:59)
[2020-11-07] MEDS: INSULIN LISPRO 300 UNITS/3 ML VIAL. SQ SCH ×3 (08:00→15:20)
[2020-11-07] MEDS: hydroCHLOROthiazide 25 MG TABLET PO SCH (08:00)
--- NOTE | 2020-11-07 08:40 | PDOC ---
PROGRESS NOTES Date of Service DATE: 11/07/20 TIME: 08:39 Subjective Subjective Problems overnight: Pain is well controlled, she is getting up and around satisfactorily has no other complaints Objective Vital Signs Vital Signs Date Time Temp Pulse Resp B/P (MAP) Pulse Ox O2 Delivery O2 Flow Rate FiO2 11/07/20 06:45 16 96 Room Air 11/07/20 06:15 97.6 84 129/80 (96) 97.6 11/06/20 18:38 2.0 Physical Exam Leg is well aligned distal neurovascular status intact dressing clean dry intact and santos operational Labs Laboratory Tests Test 11/06/20 06:55 11/06/20 12:51 11/06/20 16:38 11/06/20 20:13 Prothrombin Time 12.7 SEC (11.7-14.0) Prothromb Time International Ratio 1.0 (0.8-1.1) Activated Partial Thromboplast Time 28 SEC (24-38) Glucose (Fingerstick) 166 mg/dL (70-99) 171 mg/dL (70-99) 185 mg/dL (70-99) Test 11/07/20 05:00 11/07/20 06:13 Prothrombin Time 12.9 SEC (11.7-14.0) Prothromb Time International Ratio 1.0 (0.8-1.1) Glucose (Fingerstick) 121 mg/dL (70-99) Laboratory Tests Test 11/06/20 12:51 11/06/20 16:38 11/06/20 20:13 11/07/20 05:00 Glucose (Fingerstick) 166 mg/dL (70-99) 171 mg/dL (70-99) 185 mg/dL (70-99) Prothrombin Time 12.9 SEC (11.7-14.0) Prothromb Time International Ratio 1.0 (0.8-1.1) Test 11/07/20 06:13 Glucose (Fingerstick) 121 mg/dL (70-99) Imaging Postop x-rays show excellent alignment total knee arthroplasty Assessment Assessment POD#1 total knee arthroplasty Plan Plan of Care Likely home with home health on discharge Warfarin anticoagulation per [facility] Continue mobilize with physical therapy today Justicifation of Admission Dx: Justifications for Admission: Justification of Admission Dx: N/A CASIMIRO LEES MD Nov 07, 2020 08:40
[2020-11-07] MEDS: LISINOPRIL 20 MG TABLET PO SCH (09:00)
[2020-11-07 09:24] VITALS: BP 125/72
[2020-11-07 09:36] LABS: HEMATOCRIT 34.2 % (36.0-47.0); HEMOGLOBIN 11.3 g/dL (12.0-15.5)
[2020-11-07 11:15] VITALS: BP 119/71
[2020-11-07] MEDS ORDERED: ONDANSETRON ODT 4 MG TAB.RAPDIS. PO PRN (12:00)
[2020-11-07] MEDS ORDERED: ONDANSETRON PF 4 MG/2 ML VIAL. IVP PRN (12:00)
[2020-11-07 15:07] VITALS: BP 119/68
[2020-11-07] MEDS ORDERED: WARFARIN 3 MG TABLET. PO ONE (16:00)
[2020-11-07] MEDS ORDERED: BISACODYL 10 MG SUPP.RECT. PR PRN (16:00)
[2020-11-07 18:37] VITALS: BP 139/79
[2020-11-07] MEDS: ATORVASTATIN CALCIUM 10 MG TABLET. PO SCH (21:31)
--- NOTE | 2020-11-07 22:59 | SNU/HH DC ---
DISCHARGE WITH HOME HEALTH DISCHARGE INFORMATION: Discharge Date: Nov 08, 2020 Final Diagnosis: Status post total knee arthroplasty Condition on Discharge: Stable CODE STATUS: Code Status: Full HOME HEALTH: Face to Face: I certify this patient is under my care and that I, or a nurse practitioner or physician's assistant store manager working with me, had a face to face encounter that meets the physician face to face encounter requirements with this patient on [11/07/20]. Medical Complications: S/P Joint Replacement Chcf For: Assess/Skilled Observatio RN For Eval/Treatment: Yes Physical Therapy For: Evalulation/Treatment Pt Meets Homebound Status: Limited distance walking POST DISCHARGE ORDERS: Activity Instructions for Disc: Progressive ambulation Weight Bearing Status after Di: As tolerated DIET AFTER DISCHARGE: ADA Wound/Incision Care: Ice to area for comfort, Do not change dressing (Maintain santos dressing, call if saturated, when suction machine stops cut dressing tail and tape over to maintain seal) FOLLOW-UP: Follow up with: Dr. Petit or Zeb 2 weeks postoperatively Warfarin Follow UP: Dosage and testing per [facility] CERTIFICATION STATEMENT: Certification Statement: Certification Statement: Based on the above finding, I certify that this patient is confined to the home and needs intermittent group home care, physical therapy and/or speech therapy, or continues to need occupational therapy.~ This patient is under my care, and I have initiated the establishment of the plan of care.~ This patient will be followed by myself or a community physician who will periodically review the plan of care. Home Meds Reported Medications Benazepril Hcl (BENAZEPRIL HCL) 40 Mg Tablet, 1 TAB PO DAILY for htn, #30 TAB 5 Refills 10/23/20 Multivitamin (DAILY VALUE) 1 Each Tablet, 1 TAB PO DAILY for supplement for 30 Days, #30 TAB 0 Refills 02/08/20 Hydrochlorothiazide (Hydrochlorothiazide) 25 Mg Tablet, 1 TAB PO DAILY for HTN 02/08/20 Atorvastatin Calcium (ATORVASTATIN CALCIUM) 10 Mg Tablet, 1 TAB PO DAILY for hyperlipidemia 02/08/20 CASIMIRO PETIT MD Nov 07, 2020 22:59
[2020-11-08] MEDS: ACETAMINOPHEN 500 MG TABLET PO SCH ×3 (03:03→14:58)
[2020-11-08 04:39] LABS: PROTHROMBIN TIME PATIENT 15.8 SEC (11.7-14.0)
[2020-11-08] MEDS: traMADol 50 MG TABLET PO SCH ×3 (05:46→14:00)
[2020-11-08] MEDS: GABAPENTIN 100 MG CAPSULE. PO SCH ×2 (05:46→14:00)
[2020-11-08 06:10] VITALS: BP 125/81
[2020-11-08] MEDS ORDERED: OXYC5CAP PO (06:26)
[2020-11-08] MEDS: INSULIN LISPRO 300 UNITS/3 ML VIAL. SQ SCH ×2 (08:00→12:00)
[2020-11-08] MEDS: MELOXICAM 7.5 MG TABLET PO SCH (08:28)
[2020-11-08] MEDS: FERROUS SULFATE 325 MG TABLET. PO SCH (08:29)
[2020-11-08] MEDS: MULTIVITAMIN with MINERAL TABLET. PO SCH (08:29)
[2020-11-08] MEDS: hydroCHLOROthiazide 25 MG TABLET PO SCH (08:29)
[2020-11-08] MEDS: SENNOSIDES/DOCUSATE 8.6/50MG TABLET. PO SCH (08:29)
[2020-11-08 09:18] LABS: HEMATOCRIT 34.4 % (36.0-47.0); HEMOGLOBIN 11.5 g/dL (12.0-15.5)
[2020-11-08] MEDS: LISINOPRIL 20 MG TABLET PO SCH (10:20)
[2020-11-08] MEDS ORDERED: WARFARIN 5 MG TABLET. PO ONE (12:00)
[2020-11-08] MEDS ORDERED: WARF-31 PO (14:00)
[2020-11-08] MEDS: oxyCODONE IR 5 MG TABLET PO PRN (14:59)
[2020-11-08 15:08] VITALS: BP 145/85
--- NOTE | 2020-11-12 19:08 | PATHOLOGY ---
[facility] Accession Number: [id number] . 01 Material submitted: . knee - LEFT KNEE BONE AND TISSUE. Modifiers: left . 01 Clinical history: . LEFT KNEE OA LEFT TKA . 02 Diagnosis: Segments of bone and soft tissue, left total knee arthroplasty: - Degenerative arthritis. . (JPM:mml; 11/12/2020) [facility] 11/12/2020 1610 Local . 02 Electronically signed: . Shlomo Dc MD, Pathologist NPI- [id number] . 01 Gross description: . Received in formalin labeled "Hernandez, [place], left knee bone and tissue" are multiple fragments of romano-white bone and scant adherent pink-romano soft tissue measuring in aggregate 13.3 x 8.7 x 2.7 cm. A segment of possible meniscus is present measuring 3.5 cm in greatest dimension. The specimen displays multiple articular surfaces which are concave and convex and display roughening and eburnation over approximately 50% of the surfaces. The remaining aspects of bone are smooth and grossly consistent with surgical margins. Vice Chancellor tissue is submitted in cassette A1 following decalcification. ([facility] [place]; 11/06/2020) [facility] 11/06/2020 1813 Local . 02 Pathologist provided ICD-10: M17.12 . 02 CPT . 749240, [id number] Specimen Comment: A courtesy copy of this report has been sent to [phone], [phone] Specimen Comment: [id number] Specimen Comment: Report sent to / DR NINO Performed at: [address], [place], [place] [id number] MD Omi Merlos MD Phone: [phone] Performed at: 02 [facility] [address] [place], [place] [id number] MD Shlomo Dc MD Phone: [phone]
== END 2020-11-08 15:30 | disposition home health service (06) ==
LOC: SURG 06:08 → 4 SOUTHEST 07:42
PROVIDERS: ADMIT Orthopaedic Surgery; ATTEND Orthopaedic Surgery
DX: M17.12 Unilateral primary osteoarthritis, left knee (principal); E11.9 Type 2 diabetes mellitus without complications; I10 Essential (primary) hypertension; M19.90 Unspecified osteoarthritis, unspecified site; Z90.710 Acquired absence of both cervix and uterus; Z96.659 Presence of unspecified artificial knee joint; Z98.891 History of uterine scar from previous surgery
CPT/HCPCS: 27447; 36415; 73560; 82962; 85014; 85018; 85610; 85730; 86850; 86900; 86901; 96361; 96365; 96366; 96375; 97116; 97150; 97162; 97166; 97530; 97535; A4213; A4930; A6223; A6253; A6258; A6402; A6450; A6550; C1713; C1755; C1776; G0378; G0379; J0171; J0690; J0780; J1100; J1885; J2270; J2405; J2704; J2795; J3010; J3370; J7030; 88304; 88311; A4223

== ENCOUNTER 2020-11-16 15:37 | Emergency (ER) | payer BC ==
[~2020-11-16] VITALS: Ht 160 cm; Wt 77.0 kg
[~2020-11-16 15:37] MED LIST changes: -ACETAMINOPHEN 500 MG TABLET PO PRN; -DEXAMETHASONE SOD PHOS 4 MG/ML VIAL ONE; -GABAPENTIN 300 MG CAPSULE. PO PRN; -HYDROmorphone 2 MG/ML VIAL IVP PRN; -IV RINGERS,LACTATED 1000ML 1,000 ML IV SCH; -LIDOCAINE 2% PF 5 ML VIAL. ONE; -MELOXICAM 7.5 MG TABLET PO PRN; -MORPHINE SULFATE 2 MG/ML VIAL. IVP PRN; -ONDANSETRON PF 4 MG/2 ML VIAL. ONE; +OXYC5CAP PO; -PROCHLORPERAZINE 10 MG/2 ML VIAL. IVP PRN; -PROPOFOL 10 MG/ML (20ML) VIAL. IV ONE; -TRANEXAMIC ACID 1,000 MG in IV NS 50ML -- 1ST BAG INJ ONE; -TV=100ml MORPHINE 5 MG, KETOROLAC 30 MG, ROPIVacaine 0.5% PF 60 ML, EPINEPH... INT ART ONE; +WARF-31 PO; -fentaNYL PF VIAL 100 MCG/2 ML VIAL IVP PRN
[2020-11-16 16:43] VITALS: BP 139/70
--- NOTE | 2020-11-16 18:07 | RAD ---
Examination: LEFT LOWER EXTREMITY - UNILATERAL VENOUS DOPPLER Technique: Ultrasound evaluation of the left lower extremity was performed from the groin to the uppe r calf with crain scale, spectral and color doppler evaluation. Indication: Leg swelling Comparison: None Findings: There is normal venous flow and compressibility of left common femoral vein, femoral vein, popliteal vein, and visualized proximal calf veins. Impression: No evidence for deep vein thrombosis of left lower extremity from the level of the calf v eins to the groins. Electronically signed by: Shane Thakkar MD (11/16/2020 6:05 PM) [id number]
--- NOTE | 2020-11-16 18:35 | PHYS DOC ---
Past Medical History Past Medical History: Arthritis, Diabetes-Type II, Hypertension Additional Past Medical Histor: carpal tunnel Past Surgical History: , Hysterectomy, Knee Replacement Additional Past Surgical Histo: carpal tunnel surgery February 2020, Smoking Status: Never Smoker Alcohol Use: None Drug Use: None General Adult EDM: Chief Complaint: POST-OP PROBLEM HPI: HPI: Patient is a 55 year old female who presents with patient got a left knee replacement on November 06. Patient states that postoperatively her pain was 7 out of 10 but today it is a 5 out of 10. She states that she has got increased swelling in the legs over the last 3 to 4 days that has become concerning to her. She is also having calf tenderness. Patient is currently taking warfarin postoperatively. Patient's knee replacement was done by Dr. Lees. She does have a appointment to see him on Thursday. Patient denies chest pain, shortness of breath, dizziness, headache, focal weakness, numbness or tingling, coolness of the extremity, Skin color change. Review of Systems: Review of Systems: Constitutional: Denies fever or chills. [] Eyes: Denies change in visual acuity. [] HENT: Denies nasal congestion or sore throat. [] Respiratory: Denies cough or shortness of breath. [] Cardiovascular: Denies chest pain or + left lower leg swelling edema. [] GI: Denies abdominal pain, nausea, vomiting, bloody stools or diarrhea. [] : Denies dysuria. [] Musculoskeletal: Denies back pain or joint pain. + Left calf tenderness [] Integument: Denies rash. [] Neurologic: Denies headache, focal weakness or sensory changes. [] Endocrine: Denies polyuria or polydipsia. [] Lymphatic: Denies swollen glands. [] Psychiatric: Denies depression or anxiety. [] Heart Score: C/O Chest Pain: No Risk Factors: Risk Factors: DM, Current or recent (<one month) smoker, HTN, HLP, family history of CAD, obesity. Risk Scores: Score 0 - 3: 2.5% MACE over next 6 weeks - Discharge Home Score 4 - 6: 20.3% MACE over next 6 weeks - Admit for Clinical Observation Score 7 - 10: 72.7% MACE over next 6 weeks - Early Invasive Strategies Allergies: Allergies: Allergies Coded Allergies Type Severity Reaction Last Updated Verified No Known Drug Allergies 11/06/20 No Physical Exam: PE: Constitutional: Well developed, well nourished, no acute distress, non-toxic appearance. [] HENT: Normocephalic, atraumatic, bilateral external ears normal, oropharynx moist, no oral exudates, nose normal. [] Eyes: PERRLA, EOMI, conjunctiva normal, no discharge. [] Neck: Normal range of motion, no tenderness, supple, no stridor. [] Cardiovascular:Heart rate regular rhythm, no murmur [] Lungs & Thorax: Bilateral breath sounds clear to auscultation [] Abdomen: Bowel sounds normal, soft, no tenderness, no masses, no pulsatile masses. [] Skin: Warm, dry, no erythema, no rash. Surgical bandage intact and not soiled over the knee. [] Back: No tenderness, no CVA tenderness. [] Extremities: Left calf tenderness, no cyanosis, no clubbing, ROM intact, 2+ edema. [] Neurologic: Alert and oriented X 3, normal motor function, normal sensory f unction, no focal deficits noted. [] Psychologic: Affect normal, judgement normal, mood normal. [] Current Patient Data: Vital Signs: Vital Signs Date Time Temp Pulse Resp B/P (MAP) Pulse Ox O2 Delivery O2 Flow Rate FiO2 11/16/20 16:43 98.6 102 12 139/70 (93) 97 Room Air 98.6 EKG: EKG: [] Radiology/Procedures: Radiology/Procedures: [] Impression: [facility] [address] [place], [place] [id number] IMAGING REPORT Signed PATIENT: KENDRICK QUIROS ACCOUNT: [id number] : 1965 LOCATION: ER AGE: 55 SEX: F EXAM STATUS: REG ER ORD. PHYSICIAN: PEDRO TONY APRN REASON: swelling, left calf tenderness following knee replacement PROCEDURE: VENOUS LOWER EXTREMITY LEFT Examination: LEFT LOWER EXTREMITY - UNILATERAL VENOUS DOPPLER Technique: Ultrasound evaluation of the left lower extremity was performed from the groin to the upper calf with crain scale, spectral and color doppler evaluation. Indication: Leg swelling Comparison: None Findings: There is normal venous flow and compressibility of left common femoral vein, femoral vein, popliteal vein, and visualized proximal calf veins. Impression: No evidence for deep vein thrombosis of left lower extremity from the level of the calf veins to the groins. Electronically signed by: Shane Cruz MD (11/16/2020 6:05 PM) [facility] DICTATED and SIGNED BY: SHANE CRUZ MD DATE: 11/16/20 [id number] 0 Course & Med Decision Making: Course & Med Decision Making Pertinent Labs and Imaging studies reviewed. (See chart for details) See HPI. Alert and oriented x4. Ambulatory with a steady gait. Wound dressing still applied as she has not seen a doctor yet. Is not soiled. Patient states her pain is actually getting better. She states she is here today just due to the swelling. Calf tenderness to the left leg. 2+ swelling to the left lower leg. Sensations intact. Pedal pulses strong and present. Cap refill less than 2 seconds. Skin pink warm and dry. Afebrile. Ultrasound shows no acute findings. Patient to follow-up on Thursday with Dr Lees. [] Kika Disclaimer: Dragpapi Disclaimer: This electronic medical record was generated, in whole or in part, using a voice recognition dictation system. Departure Departure Impression: Primary Impression: Edema of left lower extremity Disposition: 01 HOME / SELF CARE / HOMELESS Condition: STABLE Referrals: ARISTIDES NINO MD (PCP) CASIMIRO LEES MD Patient Instructions: Peripheral Edema Additional Instructions: Follow-up with Dr. Lees as scheduled. If you get having shortness of breath or chest pain would come to the ED. PEDRO TONY RADAR SIGNAL PROCESSING ENGINEER Nov 16, 2020 18:35
== END 2020-11-16 19:23 | disposition home or self-care (01) ==
LOC: ER 15:37
DX: R60.0 Localized edema (principal); E11.9 Type 2 diabetes mellitus without complications; I10 Essential (primary) hypertension; Z96.652 Presence of left artificial knee joint
CPT/HCPCS: 93971; 99284-25

== ENCOUNTER → 2020-12-25 | Outpatient (CLI) | payer BC ==
--- NOTE | 2020-12-25 16:16 | KCIC ---
Bilateral digital screening mammograms with 3-D tomosynthesis: Reason for examination: Routine screening. Comparison is made to previous studies dated 11/17/2019 and 08/25/2018. Left breast ultrasound from 01/08. FINDINGS:. The breast parenchyma is heterogeneously dense, which may obscure small masses (Breast den sity: Category C). There are is an unchanged intramammary lymph node at the 3:30 position of the left breast. There are no new suspicious masses, malignant-appearing calcifications calcifications or architectural distorti on. Impression: No evidence of malignancy. ASSESSMENT: BI-RADS 1. Negative. Recommendations: Routine screening mammograms. Your patient's mammogram demonstrates that she has dense breast tissue (breast density category C or D), which could hide abnormalities, and if she has other risk factors for breast cancer that have bee n identified, she might benefit from supplemental screening tests that may be suggested by you as her ordering physician. Dense breast tissue, in and of itself, is a relatively common condition. Therefo re, this information is not provided to cause undue concern, but rather to raise your awareness and t o promote discussion with your patient regarding the presence of other risk factors, in addition to d ense breast tissue. Your patient's mammography results will be sent to her by mail. This patient's information has been e ntered into a reminder system for the patient to be notified with the results of her examination and a target date for the next mammogram. Electronically signed by: Jackie Walton MD (12/25/2020 4:14 PM) [id number]
== END ==
LOC: KCIC MAMMO 11:08
PROVIDERS: ATTEND Family Medicine
DX: Z12.31 Encounter for screening mammogram for malignant neoplasm of breast (principal)
CPT/HCPCS: 77063; 77067

== ENCOUNTER 2021-01-15 20:37 | Emergency (ER) | payer BC ==
[~2021-01-15] VITALS: Ht 157.5 cm; Wt 80.0 kg
[2021-01-15 21:45] VITALS: BP 164/91
--- NOTE | 2021-01-15 21:53 | PHYS DOC ---
Past Medical History Past Medical History: Arthritis, Diabetes-Type II, Hypertension Additional Past Medical Histor: carpal tunnel Past Surgical History: , Hysterectomy, Knee Replacement Additional Past Surgical Histo: carpal tunnel surgery February 2020, Smoking Status: Never Smoker Alcohol Use: None Drug Use: None General Adult EDM: Chief Complaint: KNEE SWELLING HPI: HPI: Patient is a 55 year old female who presents with states she got a knee replacement done in November by Dr. 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 She states now she has a sharp shooting pain that goes up the lateral left leg from the knee up into the lateral thigh. She states that there is now swelling and some warmth to the knee. She states the pain medicine is not working. She denies injury or falling. She denies weakness in the extremity or numbness and tingling. She denies fever. She rates her pain a 7 out of 10. Review of Systems: Review of Systems: Constitutional: Denies fever or chills. [] Eyes: Denies change in visual acuity. [] HENT: Denies nasal congestion or sore throat. [] Respiratory: Denies cough or shortness of breath. [] Cardiovascular: Denies chest pain or +left knee edema. [] GI: Denies abdominal pain, nausea, vomiting, bloody stools or diarrhea. [] : Denies dysuria. [] Musculoskeletal: Denies back pain or + Left knee joint pain. [] Integument: Denies rash. +left knee warmth[] Neurologic: Denies headache, focal weakness or sensory changes. [] Endocrine: Denies polyuria or polydipsia. [] Lymphatic: Denies swollen glands. [] Psychiatric: Denies depression or anxiety. [] Heart Score: C/O Chest Pain: No Risk Factors: Risk Factors: DM, Current or recent (<one month) smoker, HTN, HLP, family history of CAD, obesity. Risk Scores: Score 0 - 3: 2.5% MACE over next 6 weeks - Discharge Home Score 4 - 6: 20.3% MACE over next 6 weeks - Admit for Clinical Observation Score 7 - 10: 72.7% MACE over next 6 weeks - Early Invasive Strategies Allergies: Allergies: Allergies Coded Allergies Type Severity Reaction Last Updated Verified No Known Drug Allergies 11/06/20 No Physical Exam: PE: Constitutional: Well developed, well nourished, no acute distress, non-toxic appearance. [] HENT: Normocephalic, atraumatic, bilateral external ears normal, oropharynx moist, no oral exudates, nose normal. [] Eyes: PERRLA, EOMI, conjunctiva normal, no discharge. [] Neck: Normal range of motion, no tenderness, supple, no stridor. [] Cardiovascular:Heart rate regular rhythm, no murmur [] Lungs & Thorax: Bilateral breath sounds clear to auscultation [] Abdomen: Bowel sounds normal, soft, no tenderness, no masses, no pulsatile masses. [] Skin: Warm, dry, left knee slight erythema, no rash. [] Back: No tenderness, no CVA tenderness. [] Extremities: No tenderness, no cyanosis, no clubbing, ROM intact, left knee 3+ edema. [] Neurologic: Alert and oriented X 3, normal motor function, normal sensory function, no focal deficits noted. [] Psychologic: Affect normal, judgement normal, mood normal. [] Current Patient Data: Vital Signs: Vital Signs Date Time Temp Pulse Resp B/P (MAP) Pulse Ox O2 Delivery O2 Flow Rate FiO2 01/15/21 20:39 97 20 164/91 (115) 96 Room Air EKG: EKG: [] Radiology/Procedures: Radiology/Procedures: [] Impression: [facility] [address] [place], [place] [id number] IMAGING REPORT Signed PATIENT: KENDRICK QUIROS ACCOUNT: [id number] : 1965 LOCATION: ER AGE: 55 SEX: F EXAM STATUS: REG ER ORD. PHYSICIAN: PEDRO TONY APRN REASON: PAIN AND SWELLING PROCEDURE: KNEE LEFT 4V Exam: Left knee 4 views INDICATION: Pain and swelling TECHNIQUE: Frontal, lateral, oblique and sunrise views of the left knee Comparisons: None FINDINGS: Left knee arthroplasty changes are noted. There is a large patellar fusion. No acute or healed fractures. Joint spaces are well-maintained. IMPRESSION: Suprapatellar effusion without underlying osseous abnormality identified. Electronically signed by: Loco Pratt MD (01/15/2021 10:22 PM) [facility] DICTATED and SIGNED BY: LOCO PRATT MD DATE: 01/15/2122199778HNO4 0 Course & Med Decision Making: Course & Med Decision Making Pertinent Labs and Imaging studies reviewed. (See chart for details) See HPI. Alert and oriented x4. Ambulatory steady gait. Speaks in full clear sentences. She does limp slightly on that left leg. 3+ swelling to that left knee and on down the leg. There is warmth to the area and it looks like slight redness. She is afebrile. There is no tenderness to the knee. Cap refill less than 2 seconds. Popliteal pulses present. Sensations intact. [] Dragon Disclaimer: Dragon Disclaimer: This electronic medical record was generated, in whole or in part, using a voice recognition dictation system. Departure Departure Impression: Primary Impression: Pain and swelling of left knee Disposition: HOME / SELF CARE / HOMELESS Condition: STABLE Referrals: ARISTIDES NINO MD (PCP) CASIMIRO LEES MD Patient Instructions: Knee Effusion Additional Instructions: Follow up with Dr Lees by calling in the morning to be seen. I would stay off the knee if you can. Take medication as prescribed. Scripts Hydrocodone Bit/Acetaminophen (HYDROCODONE-APAP 5-325 ) 1 Tab Tablet 1 TAB PO PRN Q6HRS PRN for PAIN, #10 TAB 0 Refills Prov: PEDRO TONY SALES ORDER CLERK 01/15/21 Cephalexin (CEPHALEXIN) 500 Mg Capsule 1 CAP PO QID, #40 CAP Prov: PEDRO TONY SALES ORDER CLERK 01/15/21 PEDRO TONY SALES ORDER CLERK Jan 15, 2021 21:53
--- NOTE | 2021-01-15 22:24 | RAD ---
Exam: Left knee 4 views INDICATION: Pain and swelling TECHNIQUE: Frontal, lateral, oblique and sunrise views of the left knee Comparisons: None FINDINGS: Left knee arthroplasty changes are noted. There is a large patellar fusion. No acute or healed fractu res. Joint spaces are well-maintained. IMPRESSION: Suprapatellar effusion without underlying osseous abnormality identified. Electronically signed by: Loco Bryant MD (01/15/2021 10:22 PM) [facility]
[2021-01-15] MEDS ORDERED: CEPH500C PO (22:47)
[2021-01-15] MEDS ORDERED: HYDR-2761 PO (22:47)
== END 2021-01-15 23:01 | disposition home or self-care (01) ==
LOC: ER 20:37
DX: M25.562 Pain in left knee (principal); I10 Essential (primary) hypertension; E11.9 Type 2 diabetes mellitus without complications; Z90.710 Acquired absence of both cervix and uterus
CPT/HCPCS: 73564; 99283

== ENCOUNTER → 2021-01-16 | Outpatient (CLI) | payer BC ==
[2021-01-15 21:45] VITALS: BP 164/91
[~2021-01-16] MED LIST changes: +CEPH500C PO; +HYDR-2761 PO
--- NOTE | 2021-01-16 17:37 | RAD ---
EXAM: Left lower extremity venous Doppler. HISTORY: Left lower extremity pain/swelling. COMPARISON: None. FINDINGS: Grayscale and Doppler analysis of the left lower extremity deep venous system was performed with graded compression and augmentation. The common femoral, greater saphenous, superficial femoral , popliteal and calf veins were assessed. There is no evidence of deep venous thrombosis. A small amount of fluid within the anterior knee sugg ests prepatellar bursitis. IMPRESSION: 1. No evidence of deep venous thrombosis. 2. Correlate for prepatellar bursitis. Electronically signed by: Todd Osborne MD (01/16/2021 5:35 PM) [id number]
== END ==
LOC: US 16:53
PROVIDERS: ATTEND Orthopaedic Surgery
DX: M79.662 Pain in left lower leg (principal)
CPT/HCPCS: 93971

== ENCOUNTER 2021-07-30 18:06 | Emergency (ER) | payer BC ==
[~2021-07-30] VITALS: Ht 160 cm; Wt 83.3 kg
[~2021-07-30 18:06] MED LIST changes: -BENA20TA4 PO; +BENA20TA84 PO; -BENA40TA3 PO; +BENA40TA74 PO; -LISI1TAB23 PO; +LISI1TAB35 PO
[2021-07-30 18:07] VITALS: BP 175/95
[2021-07-30] MEDS ORDERED: ACETAMINOPHEN 500 MG TABLET PO ONE (18:30)
[2021-07-30] MEDS ORDERED: ASPIRIN 325 MG TABLET PO ONE (18:30)
--- NOTE | 2021-07-30 19:00 | PHYS DOC ---
Past Medical History Past Medical History: Arthritis, Diabetes-Type II, Hypertension Additional Past Medical Histor: carpal tunnel Past Surgical History: , Hysterectomy, Knee Replacement Additional Past Surgical Histo: carpal tunnel surgery February 2020, left knee replacement surg 11/06/20 Smoking Status: Never Smoker Alcohol Use: None Drug Use: None Adult General Chief Complaint Chief Complaint: CHEST PAIN HPI HPI The patient is a 55-year-old female with a history of hypertension, hyperlipidemia and cab-oylhagp-vviafamop diabetes. Patient was briefly on warfarin for what sounds like VTE prophylaxis after knee replacement surgery a year ago, but is no longer taking it. She is a never smoker. She presents for evaluation of left-sided midsternal chest discomfort which she describes as a "tightness" which had onset at about noon today, about 6 hours prior to arrival. Discomfort is not brought on or worsened by exertion and is not relieved with rest. It is reproducible to palpation of the left chest wall. Patient reports that it has gone away for brief intervals since onset earlier but has returned and is currently present and a 7 out of 10 in severity. Discomfort does not radiate. She has never had this pain before. She denies associated fevers, nausea or vomiting, upper respiratory congestion/rhinorrhea, cough, sore throat, shortness of breath, cold sweats or chills, abdominal pain, flank pain, back pain, dysuria, hematuria, polyuria or oliguria, changes in bowel habits, pain or swelling, weakness, numbness or tingling to arms or legs. Patient is alert and pleasantly and appropriately interactive and in no acute distress with appropriate vital signs aside from a degree of elevated blood pressure upon initial evaluation here in the emergency department. Review of Systems Review of Systems A 12 point review of systems was completed and was negative except for noted in HPI above. Current Medications Current Medications Current Medications Medications (Trade) Dose Ordered Sig/Robby Start Time Stop Time Status Last Admin Dose Admin Acetaminophen (Tylenol) 1,000 mg 1X ONCE 07/30/21 18:30 07/30/21 18:31 DC 07/30/21 18:42 1,000 MG Aspirin (Hira Aspirin) 325 mg 1X ONCE 07/30/21 18:30 2 18:31 DC 07/30/21 18:42 325 MG Info (CONTRAST GIVEN -- Rx MONITORING) 1 each PRN DAILY PRN 07/30/21 22:00 2/24/22 21:59 Iohexol (Omnipaque 350 Mg/ml) 100 ml 1X ONCE 07/30/21 22:00 07/30/21 22:01 DC 07/30/21 22:00 100 ML Potassium Chloride (Klor-Con) 40 meq 1X ONCE 07/30/21 21:30 07/30/21 21:31 DC 07/30/21 22:23 40 MEQ Allergies Allergies Allergies Coded Allergies Type Severity Reaction Last Updated Verified No Known Drug Allergies 11/06/20 No Physical Exam Physical Exam 55-year-old female appearing nontoxic and in no acute distress. Head is normocephalic and atraumatic. Neck is supple and nontender. No JVD. No carotid bruits. Oropharynx is moist. Lungs are clear to auscultation at all stations. There is a normal S1 and S2 without rubs or gallops and capillary refill is appropriate, less than 2 seconds globally. Abdomen is soft, nontender nondistended without pulsatile mass. Skin is warm and dry without cyanosis, clubbing or edema. Psychiatrically, the patient demonstrates appropriate mood and affect and is alert. Evaluation of the extremities reveals BUEs and BLEs neurovascularly intact distally with strength out of 5, sensation intact light touch in all nerve distributions, radial, DP and PT pulses 2+ and equal bilaterally, capillary refill less than 2 seconds, hands and feet warm and well- perfused. No dependent peripheral edema distally. No calf tenderness swelling bilaterally. Homans test is negative bilaterally. Current Patient Data Vital Signs Vital Signs Date Time Temp Pulse Resp B/P (MAP) Pulse Ox O2 Delivery O2 Flow Rate FiO2 07/30/21 18:07 97.6 95 20 175/95 (121) 97 Room Air 97.6 Lab Values Laboratory Tests Test 07/30/21 19:10 07/30/21 20:10 07/30/21 22:40 White Blood Count 6.6 x10^3/uL (4.0-11.0) Red Blood Count 4.95 x10^6/uL (3.50-5.40) Hemoglobin 13.7 g/dL (12.0-15.5) Hematocrit 41.5 % (36.0-47.0) Mean Corpuscular Volume 84 fL (79-100) Mean Corpuscular Hemoglobin 28 pg (25-35) Mean Corpuscular Hemoglobin Concent 33 g/dL (31-37) Red Cell Distribution Width 14.9 % (11.5-14.5) H Platelet Count 229 x10^3/uL (140-400) Neutrophils (%) (Auto) 60 % (31-73) Lymphocytes (%) (Auto) 31 % (24-48) Monocytes (%) (Auto) 7 % (0-9) Eosinophils (%) (Auto) 1 % (0-3) Basophils (%) (Auto) 1 % (0-3) Neutrophils # (Auto) 3.9 x10^3/uL (1.8-7.7) Lymphocytes # (Auto) 2.0 x10^3/uL (1.0-4.8) Monocytes # (Auto) 0.5 x10^3/uL (0.0-1.1) Eosinophils # (Auto) 0.1 x10^3/uL (0.0-0.7) Basophils # (Auto) 0.0 x10^3/uL (0.0-0.2) Sodium Level 139 mmol/L (136-145) Potassium Level 2.9 mmol/L (3.5-5.1) *L Chloride Level 98 mmol/L (98-107) Carbon Dioxide Level 31 mmol/L (21-32) Anion Gap 10 (6-14) Blood Urea Nitrogen 12 mg/dL (7-20) Creatinine 1.0 mg/dL (0.6-1.0) Estimated GFR (Cockcroft-Gault) 69.4 BUN/Creatinine Ratio 12 (6-20) Glucose Level 90 mg/dL (70-99) Calcium Level 9.5 mg/dL (8.5-10.1) Total Bilirubin 0.3 mg/dL (0.2-1.0) Aspartate Amino Transferase (AST) 16 U/L (15-37) Alanine Aminotransferase (ALT) 26 U/L (14-59) Alkaline Phosphatase 93 U/L (46-116) Troponin I High Sensitivity 5 ng/L (4-50) 6 ng/L (4-50) OP-Aob-V-Type Natriuretic Peptide 20 pg/mL (0-124) Total Protein 8.5 g/dL (6.4-8.2) H Albumin 4.2 g/dL (3.4-5.0) Albumin/Globulin Ratio 1.0 (1.0-1.7) Prothrombin Time 12.8 SEC (11.7-14.0) Prothrombin Time INR 1.0 (0.8-1.1) Activated Partial Thromboplast Time 30 SEC (24-38) D-Dimer (Leila) 0.80 ug/mlFEU (0.00-0.50) H Laboratory Tests 07/30/21 19:10 Laboratory Tests 07/30/21 19:10 EKG EKG Sinus rhythm, rate 72, no acute ST elevation or depression, NV 140, QRS 96, QTc 429, EP interpretation. Nonischemic tracing, intervals appropriate. Radiology/Procedures Radiology/Procedures No acute cardiopulmonary process on plain films per EP interpretation. Formal radiology interpretation is to follow. Course & Med Decision Making Course & Med Decision Making Well-appearing 55-year-old female presenting for atypical chest discomfort with onset about 6 hours ago. Checking labs, EKG and chest x-ray and will give a fu ll-strength aspirin and a dose of Tylenol as noted and will then reevaluate. 2315: Labs and imaging entirely nonacute aside from mildly elevated D-dimer which has been further explored with CT angiography of the chest which is without evidence of PE or other acute process. Delta troponin negative. HEART score 3, low risk for near-term MACE (+1 for age, +2 for risk factors). On serial reassessments patient is resting very comfortably and reports that her presenting discomfort has entirely resolved. Given resolution of symptoms in this well-appearing middle-aged female with favorable risk profile and negative work-up, will discharge home for 72-hour cardiology follow-up in the office. Stephon hernandez will be provided the appropriate referral information. She understands that if she feels worse instead of better, has recurrent symptoms or develops other new symptoms of concern that she should return to the emergency department right away for reevaluation. All questions are answered. Dragon Disclaimer Dragon Disclaimer This electronic medical record was generated, in whole or in part, using a voice recognition dictation system. Departure Departure Impression: Primary Impression: Other chest pain Additional Impression: Benign essential hypertension Disposition: HOME / SELF CARE / HOMELESS Condition: IMPROVED Referrals: ARISTIDES NINO MD (PCP) Patient Instructions: Chest Pain (Nonspecific) Additional Instructions: Follow-up very closely with your primary care doctor in the office in the next 2 to 4 days for a reevaluation of your symptoms and to discussion of next best steps in care. Drink plenty of fluids and get plenty of rest. Your blood pressure was somewhat elevated today. Make sure to have it rechecked by your primary doctor at your upcoming appointment. We are providing a referral to our cardiology clinic. Please call later today to make an appointment to be seen by Dr. Eddy or one of his partners. Let the clinical professor know that you were seen overnight in the ER for chest pain and that you need a close follow-up appointment for chest pain, ideally within the next 72 hours. Return to the emergency department right away for recurrent or worsening symptoms of any kind or with any other new symptoms of concern. Problem Qualifiers BIJU BURNS MD Jul 30, 2021 19:00
[2021-07-30 19:30] LABS: BASO % 1 % (0-3); EOS # 0.1 x10^3/uL (0.0-0.7); EOS % 1 % (0-3); HEMATOCRIT 41.5 % (36.0-47.0); HEMOGLOBIN 13.7 g/dL (12.0-15.5); LYMPH % 31 % (24-48); MEAN CORPUSCULAR HEMOGLOBIN 28 pg (25-35); MEAN CORPUSCULAR HGB CONC 33 g/dL (31-37); MEAN CORPUSCULAR VOLUME 84 fL (79-100); MONO # 0.5 x10^3/uL (0.0-1.1); MONO % 7 % (0-9); NEUT # 3.9 x10^3/uL (1.8-7.7); NEUT % 60 % (31-73); PLATELET COUNT 229 x10^3/uL (140-400); RED BLOOD COUNT 4.95 x10^6/uL (3.50-5.40); RED CELL DISTRIBUTION WIDTH 14.9 % (11.5-14.5); WHITE BLOOD COUNT 6.6 x10^3/uL (4.0-11.0)
[2021-07-30 19:45] LABS: ALBUMIN 4.2 g/dL (3.4-5.0); CALCIUM 9.5 mg/dL (8.5-10.1); GFR 69.4; TOTAL BILIRUBIN 0.3 mg/dL (0.2-1.0); TOTAL PROTEIN 8.5 g/dL (6.4-8.2)
[2021-07-30 20:05] LABS: POTASSIUM 2.9 mmol/L (3.5-5.1)
--- NOTE | 2021-07-30 20:17 | RAD ---
EXAM: CHEST ONE VIEW. HISTORY: Chest pain. COMPARISON: 10/23/2020. FINDINGS: A frontal view of the chest is obtained. There are no confluent infiltrates. There is no pneumothorax or pleural effusion. The heart is mildly enlarged. IMPRESSION: 1. Mild cardiomegaly. Electronically signed by: Todd Osborne MD (07/30/2021 8:15 PM) [id number]
[2021-07-30 20:51] LABS: PROTHROMBIN TIME PATIENT 12.8 SEC (11.7-14.0)
[2021-07-30 21:10] LABS: D-DIMER 0.8 ug/mlFEU (0.00-0.50)
[2021-07-30] MEDS ORDERED: POTASSIUM CHLORIDE 20 MEQ TABLET.ER. PO ONE (21:30)
[2021-07-30] MEDS ORDERED: IOHEXOL 350 MG/ML 100 ML VIAL. IV ONE (22:00)
[2021-07-30] MEDS ORDERED: CONTRAST GIVEN. MC PRN (22:00)
--- NOTE | 2021-07-30 22:46 | RAD ---
Exam: CT of chest with contrast INDICATION: Elevated d-dimer, chest pain TECHNIQUE: Sequential axial images through the chest obtained following the administration 100 mL of Omni 350 IV contrast. Sagittal and coronal reformatted images were reconstructed from the axial data and reviewed. Exposure: One or more of the following in the visualized dose reduction techniques were utilized for this examination: 1. Automated exposure control 2. Adjustment of the MA and/or KV according to patient size 3. Use of iterative of reconstructive technique Comparisons: Chest x-ray same FINDINGS: Visualized portions of the thyroid are unremarkable. No enlarged mediastinal lymph nodes are identifi ed. Heart size is normal. No pericardial effusion. Thoracic aorta has a normal course and caliber. Pulmon momo artery is not enlarged. No pulmonary embolus identified within the main, lobar or segmental pulmo nary arteries. Airways are patent. No consolidation or pneumothorax. No suspicious lung nodules. No pleural effusion or thickening. Visualized upper abdomen is unremarkable. No suspicious osseous lesions or acute fractures. IMPRESSION: No pulmonary embolus identified within the main, lobar or segmental pulmonary arteries. Electronically signed by: Loco Bryant MD (07/30/2021 10:44 PM) [facility]
--- NOTE | 2021-07-31 05:53 | EKG ---
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
== END 2021-07-30 23:47 | disposition home or self-care (01) ==
LOC: ER 18:06
DX: R07.2 Precordial pain (principal); I10 Essential (primary) hypertension; E11.9 Type 2 diabetes mellitus without complications; E78.5 Hyperlipidemia, unspecified
CPT/HCPCS: 36415; 71045; 71275; 80053; 83880; 84484; 85025; 85379; 85610; 85730; 93005; 99285; Q9967